=== PATIENT | male | born 1975 | race Caucasian/White ===

== ENCOUNTER 2016-09-15 04:00 | Inpatient (IN) | payer OTHER ==
[~2016-09-15] VITALS: Ht 175.3 cm; Wt 80.7 kg
--- NOTE | 2016-09-15 04:21 | HP ---
Date/Time of Note Date/Time of Note DATE: 09/15/16 TIME: 04:16 Assessment/Plan VTE Prophylaxis VTE Prophylaxis Intervention: SCD's Assessment/Plan Assessment/Plan 40 yo male with a past medical history of ETOH abuse, cirrhosis, vitiligo, s/p TIPS procedure, who presents with acute loss of consciousness. 1. Syncope - vasovagal vs cardiogenic - will admit the patient to telemetry, obtain 2D-ECHO, carotid duplex, fall risk precautions, neurovascular checks, TSH /Mag level 2. ETOH abuse - patient counseled on cessation - social work consult, banana bag , librium, GI c/s, ativan prn 3. Liver Cirrhosis s/p TIPS - hepatically adjust medications 4. Pancytopenia - 2/2 #2 - monitor acute changes 5. Vitiligo - monitor 6. GI ppx - protonix 7. DVT ppx - scds 8. Hypomagnesemia - replete answered all of his questions. as per clinical course this history and physical took greater then 45 minutes to complete HPI/ROS Admit Date/Time Admit Date/Time 09/15/2016, 4:50 am Hx of Present Illness 40 yo male with a past medical history of ETOH abuse, cirrhosis, vitiligo, s/p TIPS procedure, who presents with acute loss of consciousness. He states that he was drinking last night, passed out and hit his face. He does not recollect what had happened. He was brought in via ambulance to [facility]. Patient states that he had nausea and vomiting x 5 episodes NBNB. Otherwise denies chest pain, shortness of breath, headaches, urinary/bowel irregularities. He does complain of dizziness and weakness. Similar presentation before. He was transferred here to [facility] for insurance purposes. Ct facial: normal CT of the face, no fracture, no hematoma, globes intact. Mild mucoperiosteal thickening maxillary sinuses. CT neck: Mild degenerative changes, without acute fracture Ct brain without contrast: No evidence of acute intracranial pathology. The brain in normal appearance. Labs: WBC 2.5, H/H: 8.3/25.7, Plts: 95, MCV 78.6, K+ 3.3, gluc 118, Mag 1.3, Alb 2.9, Tbili 1.8, Alt 34, AST: 89, Alkphos 175, Amylase 148, Lactic Acid 3.0, Lipase 40, Ethanol 366 ROS 14 point review of systems completed, please refer to HPI for any positive findings PMH/Family/Social Past Medical History ETOh abuse, liver cirrhosis, vitiligo Past Surgical History s/p TIPS procedure, right lung resection with decortication Family History Significant Family History: no pertinent family hx, heart disease (none), cancer (none) Social History Alcohol Use: heavy (4 beers a day) Smoking Status: Never smoker Drug Use: none Exam/Review of Systems Exam Exam Gen Yara: NAD, AAOx4 HEENT: NC/AT, PERRLA, EOMI, no pharyngeal erythema, no tonsillar exudates, no lymphadenopathy, no JVD, no carotid bruits, right periorbital swelling noted, nares with dried blood NECK: supple, no thyromegaly THORAX: symmetrical, no obvious deformities CV: S1S2, tachycardiac, no M/G/R Lungs: CTAB no W/C/R/R Abd: soft, NT/ND, +BS, no rebound, no guarding, neg HSM EXT: no edema, no ecchymosis, no clubbing, FROM Neuro: CN II-XII grossly intact, no focal deficits Psych: good mentation, alert and oriented, good mood and affect Skin: C/D/I LUIS CARTER MD Sep 15, 2016 04:21
[2016-09-15] MEDS ORDERED: ONDANSETRON 4 MG INJ IV PRN (04:30)
[2016-09-15] MEDS ORDERED: NITROGLYCERIN (SL) 0.4 MG TAB SL PRN (04:30)
[2016-09-15] MEDS ORDERED: DOCUSATE SODIUM 100 MG CAP PO PRN (04:30)
[2016-09-15] MEDS ORDERED: NACL 0.9% 3 ML SYG IV SCH (04:30)
--- NOTE | 2016-09-15 04:31 | ERA ---
ER Documentation Chief Complaint Date/Time DATE: 09/15/16 TIME: 04:30 Chief Complaint HPI 40-year-old male who has alcohol withdrawal who is capitated here transferred from [facility]. Patient will be admitted to the hospitalist. ROS All systems reviewed and are negative except as per history of present illness. Allergies Allergies: Coded Allergies: No Known Allergy (Unverified , 07/20/16) PMhx/Soc History of Surgery: No Anesthesia Reaction: No Hx Neurological Disorder: No Hx Respiratory Disorders: No Hx Cardiac Disorders: No Hx Psychiatric Problems: No Hx Miscellaneous Medical Probl: Yes (ESOPHAGEAL VARICES) Hx Alcohol Use: Yes Hx Substance Use: No Hx Tobacco Use: No Physical Exam Physical Exam Const: [] Head: Atraumatic Eyes: Normal Conjunctiva ENT: Normal External Ears, Nose and Mouth. Neck: Full range of motion..~ No meningismus. Resp: Clear to auscultation bilaterally Cardio: Regular rate and rhythm, no murmurs Abd: Soft, non tender, non distended. Normal bowel sounds Skin: No petechiae or rashes Back: No midline or flank tenderness Ext: No cyanosis, or edema Neur: Awake and alert Psych: Normal Mood and Affect Results 24 hrs Current Medications Medications (Trade) Dose Ordered Sig/Debora Route PRN Reason Start Time Stop Time Status Last Admin Dose Admin Sodium Chloride (NS) 1,000 ml @ 50 mls/hr Q20H IV 09/15/16 04:12 IV Flush (NS 3 ml) 3 ml PER PROTOCOL IV 09/15/16 04:30 Lorazepam (Ativan) 0.5 mg Q6H PRN IV ANXIETY 09/15/16 04:30 Ondansetron HCl (Zofran Inj) 4 mg Q6H PRN IV NAUSEA AND/OR VOMITING 09/15/16 04:30 Nitroglycerin (Nitroglycerin (Sl Tab) 0.4 Mg) 1 tab Q5M PRN SL CHEST PAIN 09/15/16 04:30 Ibuprofen (Motrin) 600 mg Q6H PRN PO PAIN LEVEL 1-3 OR FEVER 09/15/16 04:30 Morphine Sulfate (morphine) 2 mg Q4H PRN IV PAIN LEVEL 7-10 09/15/16 04:30 Docusate Sodium 100 mg 100 mg Q12H PRN PO CONSTIPATION 1/11/17 04:30 Multivitamins/ Thiamine HCl/ Folic Acid/Sodium Chloride (Mvi-12 Adult/ Vitamin B1/Folic Acid/NS) 1,011.2 ml @ 125 mls/ hr DAILY@09 IVPB 09/15/16 09:00 Procedures/MDM Medical decision-makin gentleman acute alcohol withdrawal syndrome. Patient comes through the ER secondary to capitated insurance. Patient will be admitted to telemetry to the hospitalist. Hospitalist is aware. Departure Diagnosis: Primary Impression: Alcohol withdrawal Qualified Code: F10.230 - Alcohol withdrawal, uncomplicated Condition: Stable CONCEPCION KIMBLE Sep 15, 2016 04:31
[2016-09-15] MEDS: LORAZEPAM 2 MG INJ IV PRN ×2 (04:41→10:34)
[2016-09-15] MEDS: SOD CHLORIDE 0.9% 1,000 ML IV SCH ×2 (04:41→17:10)
[2016-09-15] MEDS: morphine 2 MG INJ IV PRN (04:42)
[2016-09-15] MEDS ORDERED: MAGNESIUM SULFATE 4 GM/100 ML 100 ML IVPB ONE (05:00)
[2016-09-15 05:03] LABS: CHOL/HDL RATIO 3.2 RATIO; MAGNESIUM 1.2 mg/dl (1.7-2.5)
[2016-09-15 05:15] LABS: TROPONIN-I 0.013 ng/ml (0.00-0.12)
[2016-09-15 05:35] LABS: THYROID STIMULATING HORMONE 2.37 MIU/L (0.465-4.680)
[2016-09-15] MEDS: MULTIVITAMINS 10 ML, THIAMINE 100 MG, FOLIC ACID 1 MG in SOD CHLORIDE 0.9% 1,000 ML IVPB SCH (08:12)
--- NOTE | 2016-09-15 09:02 | RADRPT ---
PROCEDURE: US Carotids. CLINICAL INDICATION: bruit , syncope. TECHNIQUE: Multiple sonographic of the carotid bifurcation region and vertebral arteries were obta ined utilizing summers scale, duplex and color-flow imaging. The images were reviewed on a PACS worksta tion. COMPARISON: No prior studies are available for comparison. FINDINGS: Evaluation of the right carotid bifurcation region reveals no significant calcific atherosclerotic d isease. Evaluation of the left carotid bifurcation region reveals no significant calcific atherosclerotic di sease. There is antegrade flow within the vertebral arteries bilaterally. RIGHT CAROTID MEASUREMENTS: Common Carotid Ejjhxg459.7 (cm/sec) Internal Carotid Artery - lgfkilxv521.8 (cm/sec) Internal Carotid Artery - qep472.6 (cm/sec) Internal Carotid Artery - zzyrhp89.5 (cm/sec) Internal Carotid/Common Carotid1.06 LEFT CAROTID MEASUREMENTS: Common Carotid Jithep351.8 (cm/sec) Internal Carotid Artery - xrrfpvcu38.8 (cm/sec) Internal Carotid Artery - mid64.9 (cm/sec) Internal Carotid Artery - icxpyh08.1 (cm/sec) Internal Carotid/Common Carotid0.75 RPTAT: AA IMPRESSION: No evidence for hemodynamically significant stenosis in the bilateral internal carotid arteries - va lidated velocity measurements with angiographic measurements, velocity criteria are extrapolated fro m diameter data as defined by the Society of Radiologists in Ultrasound Consensus Conference Radiolo gy 2003; 229;340-346. This study does indirectly reference the measurement of the distal ICA diamet er as the denominator for stenosis measurement. Normal antegrade flow in the vertebral arteries bilaterally. .Maurice Orr MD, MD Date Time Electronically viewed and signed by .Maurice Orr MD, MD on 09/15/2016 09:02 .S/
[2016-09-15 11:07] VITALS: TEMP 98.7
[2016-09-15 11:22] LABS: CK-MB 2.07 ng/ml (0.0-2.4)
[2016-09-15 11:24] LABS: TROPONIN-I 0.014 ng/ml (0.00-0.12)
[2016-09-15 12:27] VITALS: Ht 175.3 cm; Wt 80.7 kg
[2016-09-15] MEDS: IBUPROFEN 600 MG TAB PO PRN (13:09)
[2016-09-15 15:24] LABS: ALBUMIN 2.8 g/dl (3.3-4.9)
[2016-09-15 15:25] LABS: POTASSIUM 3.8 mmol/L (3.5-5.1)
[2016-09-15 15:27] LABS: BILIRUBIN,INDIRECT 1.3 mg/dl (0-1.1); BILIRUBIN,TOTAL 1.3 mg/dl (0.2-1.3); CREATININE 0.52 mg/dl (0.61-1.24)
[2016-09-15 15:28] LABS: ALBUMIN/GLOBULIN RATIO 0.75; CALCIUM 8.1 mg/dl (8.4-10.2); TOTAL PROTEIN 6.5 g/dl (6.1-8.1)
--- NOTE | 2016-09-15 15:28 | CONS ---
Date/Time of Note Date/Time of Note DATE: 09/15/16 TIME: 15:24 Assessment/Plan Assessment/Plan Additional Assessment/Plan Hematemesis * PPI therapy and Carafate * Monitor H&H every 6hr, transfuse 2 units for hemoglobin less than 7.5 Esophageal varices History of TIPS procedure * Patient was transferred to [facility] [place] on [place]/15/2016 for Balloon-occluded retrograde transvenous obliteration (BRTO) EtOH abuse * Encourage accident Further recommendations pending clinical course Consultation Date/Type/Reason Admit Date/Time 09/15/2016, 4:50 am Type of Consultation: Gastroenterology Reason for Consultation History of esophageal varices, reports of hematemesis Hx of Present Illness 40-year-old male presented to ED with reports of nausea at least one episode of hematemesis, alcohol intoxication, and syncopal episode. Patient was previously evaluated at [facility] and transferred to [facility] for further evaluation. Patient patient has PMH of TIPS procedure and variceal bleeding. Patient was transferred from [facility] to [facility] on 08/15/16 for Balloon-occluded retrograde transvenous obliteration (BRTO) due to complications from TIPS. Patient unable to provide information about procedure (namely timing and plan for follow-up). Patient denies abdominal pain, diarrhea, shortness of breath, chest pain, dizziness, and headache. Presently repeat EGD not recommended unless overt bleeding is noted or precipitous drop in hemoglobin. Patient has few therapeutic options from repeat EGD. We will continue to monitor hemoglobin, and transfuse as necessary. 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 intact Results Results 24 hrs Laboratory Tests Test 09/15/16 04:35 09/15/16 10:13 09/15/16 10:43 Cholesterol Level 148 Cholesterol/HDL Ratio 3.2 Creatine Kinase 565 H 560 H Creatine Kinase Index 0.4 0.4 Creatinine Kinase MB (Mass) 2.00 2.07 HDL Cholesterol 45 LDL Cholesterol, Calculated 81 Magnesium Level 1.2 L 1.9 Thyroid Stimulating Hormone (TSH) 2.370 Triglycerides Level 112 Troponin I 0.013 0.014 Medications Medications Current Medications Sodium Chloride (NS) 1,000 ml @ 50 mls/hr Q20H IV Last administered on 04:41; Admin Dose 50 MLS/HR; Start 09/15/16 at 04:12 Lorazepam (Ativan) 0.5 mg Q6H PRN IV ANXIETY Last administered on 09/15/16 10: 34; Admin Dose 0.5 MG; Start 09/15/16 at 04:30 Ondansetron HCl (Zofran Inj) 4 mg Q6H PRN IV NAUSEA AND/OR VOMITING Last administered on 09/15/16 04:41; Admin Dose 4 MG; Start 09/15/16 at 04:30 Nitroglycerin (Nitroglycerin (Sl Tab) 0.4 Mg) 1 tab Q5M PRN SL CHEST PAIN; Start 09/15/16 at 04:30 Ibuprofen (Motrin) 600 mg Q6H PRN PO PAIN LEVEL 1-3 OR FEVER Last administered on 09/15/16 13:09; Admin Dose 600 MG; Start 09/15/16 at 04:30 Morphine Sulfate (morphine) 2 mg Q4H PRN IV PAIN LEVEL 7-10 Last administered on 09/15/16 04:42; Admin Dose 2 MG; Start 09/15/16 at 04:30 Docusate Sodium 100 mg 100 mg Q12H PRN PO CONSTIPATION; Start 09/15/16 at 04:30 Multivitamins/ Thiamine HCl/ Folic Acid/Sodium Chloride (Mvi-12 Adult/ Vitamin B1/Folic Acid/NS) 1,011.2 ml @ 125 mls/ hr DAILY@09 IVPB Last administered on 09/15/16 08:12; Admin Dose 125 MLS/HR; Start 09/15/16 at 09:00 Pantoprazole (Protonix Iv) 40 mg BID@06,18 IV ; Start 09/15/16 at 18:00 VAZQUEZ CASTANEDA MD Sep 15, 2016 15:28
[2016-09-15 15:40] LABS: HEMATOCRIT 21.3 % (42.0-52.0); HEMOGLOBIN 7.2 g/dl (14.0-18.0); MEAN CORPUSCULAR HEMOGLOBIN 26.1 pg (29.0-33.0); MEAN CORPUSCULAR HGB CONC 33.6 g/dl (32.0-37.0); MEAN CORPUSCULAR VOLUME 77.7 fl (82.0-101.0); PLATELET COUNT 61 10^3/UL (140-440); RED BLOOD COUNT 2.75 10^6/ul (4.70-6.10); RED CELL DISTRIBUTION WIDTH 17.3 % (11.5-14.5); UNCORRECTED WBC 1.7 10^3/ul (4.8-10.8)
[2016-09-15 15:46] LABS: CONDITION 1; LH ANALYZER COMMENTS 1; MEAN PLATELET VOLUME 8.5 fl (7.4-10.4)
--- NOTE | 2016-09-15 15:55 | RADRPT ---
Echocardiogram Report Patient Name: LYNDA TENORIO Gender: Male Date: 1975 Study Date: 15-Sep-2016 Room Attendant: Casper Nesbitt RDCS Location: Ref. Physician: LUIS CARTER Quality: Good Procedures: Transthoracic echocardiogram with complete 2D, M-Mode, and doppler examination. Indications: Syncope. 2D/M Mode Doppler Measurement Value Normal Ranges Measurement Value Normal Ranges LVIDd 2D 5.1 3.5 - 5.6 cm AV Peak Russ 2.0 m/sec LVIDs 2D 2.8 2.1 - 4.1 cm AV Peak PG 16.2 mmHg LVPWd 2D 1.1 0.6 - 1.1 cm LVOT Peak Russ 1.3 m/sec IVSd 2D 1.0 0.6 - 1.1 cm LVOT Peak PG 6.9 mmHg AoR Diam 2D 2.6 2.0 - 3.7 cm MV E Peak Russ 1.3 m/sec EDV 2D 122.3 cm3 MV A Peak Russ 1.7 m/sec ESV 2D 21.1 cm3 MV E/A 0.8 LA Dimen 2D 4.2 2.3 - 4.0 cm MV Decel Time 101 msec IVC Diam 1.8 1.2 - 2.0 MV Decel Moca 13 MV E/A 0.8 TR Peak Russ 2.4 m/sec TR Peak PG 23.7 mmHg RVSP 32.0 mmHg Findings Left Ventricle: Normal left ventricular systolic function. Normal left ventricular cavity size. Normal left ventricular wall thickness. Ejection fraction is visually estimated at 6065 %. Tissue Doppler/Mitral Doppler indices are consistent with impaired relaxation (Stage I diastolic dysfunction). Right Ventricle: Normal right ventricular size. Normal right ventricular systolic function. Left Atrium: There is mild enlargement of left atrium. Right Atrium: The right atrium is normal in size. Mitral Valve: Mitral valve leaflets appear mildly thickened. Mild mitral valve regurgitation. Aortic Valve: Normal appearance of the aortic valve. No significant aortic stenosis or insufficiency. Tricuspid Valve: Estimated peak PA systolic pressure 32 mmHg. There is mild tricuspid regurgitation. Pericardium: Normal pericardium with no significant pericardial effusion. Aorta: Normal aortic root. IVC: Normal size and no respiratory collapse consistent with elevated right atrial pressure. Conclusions 1.Normal left ventricular systolic function. Normal left ventricular cavity size. Normal left ventricular wall thickness. Ejection fraction is visually estimated at 60-65 %. Tissue Doppler/Mitral Doppler indices are consistent with impaired relaxation (Stage I diastolic dysfunction). There is mild enlargement of left atrium. 2.Mild mitral valve regurgitation. 3.Estimated peak PA systolic pressure 32 mmHg. 4.There is mild tricuspid regurgitation. Electronically Signed By: Ihsan Estrella 15-Sep-2016 15:55:25 -0800 Patient Name: LYNDA TENORIO Study Date: 15-Sep-[id number]
[2016-09-15 17:32] LABS: EOSINOPHILS # 0.1 10^3/ul (0.0-0.5); MONOCYTE # 0.1 10^3/ul (0.3-0.9); NEUTROPHIL # 0.5 10^3/ul (1.6-7.5)
[2016-09-15 17:35] LABS: ANISOCYTOSIS 1+; HYPOCHROMASIA OCCASIONAL; MICROCYTOSIS 1+; PLATELET ESTIMATE PLT APPEAR DECREASED
[2016-09-15] MEDS: PANTOPRAZOLE 40 MG INJ IV SCH (18:02)
[2016-09-15] MEDS ORDERED: PHYTONADIONE 10 MG in DEXTROSE 5% 50 ML IVPB ONE (19:00)
[2016-09-15 20:33] VITALS: BP 116/57; RESP 19
[2016-09-15] MEDS ORDERED: ACETAMINOPHEN 325 MG TAB PO PRN (23:00)
[2016-09-16] MEDS: SOD CHLORIDE 0.9% 1,000 ML IV SCH ×2 (00:12→20:12)
[2016-09-16] MEDS: PANTOPRAZOLE 40 MG INJ IV SCH ×2 (06:16→17:35)
[2016-09-16 08:16] VITALS: BP 120/64; RESP 19
[2016-09-16] MEDS: MULTIVITAMINS 10 ML, THIAMINE 100 MG, FOLIC ACID 1 MG in SOD CHLORIDE 0.9% 1,000 ML IVPB SCH (09:00)
[2016-09-16 10:17] LABS: HEMATOCRIT 25.8 % (42.0-52.0); HEMOGLOBIN 8.5 g/dl (14.0-18.0); MEAN CORPUSCULAR HEMOGLOBIN 26.5 pg (29.0-33.0); MEAN CORPUSCULAR VOLUME 80.3 fl (82.0-101.0); PLATELET COUNT 41 10^3/UL (140-440); RED BLOOD COUNT 3.22 10^6/ul (4.70-6.10); RED CELL DISTRIBUTION WIDTH 17.3 % (11.5-14.5); UNCORRECTED WBC 1.9 10^3/ul (4.8-10.8); WHITE BLOOD COUNT 1.9 10^3/ul (4.8-10.8)
[2016-09-16 10:18] LABS: CONDITION 1; LH ANALYZER COMMENTS 1; MEAN PLATELET VOLUME 7.8 fl (7.4-10.4)
[2016-09-16 10:27] LABS: INR 1.64; PROTIME 19.5 Sec (12.2-14.2); PT RATIO 1.5
[2016-09-16 10:28] LABS: PARTIAL THROMBOPLASTIN TIME 36.7 Sec (25.0-35.0)
[2016-09-16 10:33] LABS: POTASSIUM 3.7 mmol/L (3.5-5.1)
[2016-09-16 10:50] LABS: CREATININE 0.58 mg/dl (0.61-1.24)
[2016-09-16 11:21] LABS: ANISOCYTOSIS 1+; EOSINOPHILS # 0.1 10^3/ul (0.0-0.5); HYPOCHROMASIA 1+; LYMPHOCYTES # 0.3 10^3/ul (0.8-2.9); MICROCYTOSIS 1+; MONOCYTE # 0.2 10^3/ul (0.3-0.9); NEUTROPHIL # 1.3 10^3/ul (1.6-7.5)
[2016-09-16 11:22] LABS: PLATELET ESTIMATE PLT APPEAR DECREASED
[2016-09-16] MEDS ORDERED: LORAZEPAM 2 MG INJ IV PRN (12:30)
[2016-09-16 12:34] LABS: IRON 99 ug/dl (35-150)
[2016-09-16 12:43] LABS: TOTAL IRON BINDING CAPACITY 373 ug/dl (241-421)
--- NOTE | 2016-09-16 13:44 | RADRPT ---
PROCEDURE: Chest Radiograph. CLINICAL INDICATION: Fever. TECHNIQUE: Single frontal chest radiograph. COMPARISON: None available FINDINGS: The heart is magnified. There is elevation of the right hemidiaphragm.. Patchy increased density i n the right lung base may represent atelectasis or developing infiltrate. The left lung is grossly clear . No pleural effusion is identified. The bones are intact. IMPRESSION: 1. Linear opacities in the right lung base likely representing atelectasis, though developing infil trate could have this appearance. 2. Mild elevation of the right hemidiaphragm. RPTAT: KK .Riky Dodd MD, MD Date Time Electronically viewed and signed by .Riky Dodd MD, on 09/16/2016 13:44 .B/
--- NOTE | 2016-09-16 14:11 | PN ---
DATE: 09/16/2016 SUBJECTIVE: No acute events overnight. The patient presently speaking with manager social. The pat ient received 2 units of PRBC yesterday, also 1 unit FFP and 1 unit of platelet transfusion. OBJECTIVE: VITAL SIGNS: Show T-max of 100.9, pulse of 106 to 124, respirations 19, blood pressure 120/64, satu rating at 99% on room air. GENERAL: The patient is lying in bed, answering questions appropriately. No acute distress. HEENT: Pupils equal, round, react to light. Extraocular muscles intact. NECK: Supple. No thyromegaly. LUNGS: Clear to auscultation bilaterally. CARDIOVASCULAR: S1, S2 heard. No rubs or gallops. ABDOMEN: Soft, nontender, nondistended. Normal bowel sounds. No rebound or guarding. MUSCULOSKELETAL: No lower extremity edema bilaterally. NEUROLOGIC: No focal deficits. LABORATORY DATA: WBC 1.9, hemoglobin 8.5, hematocrit 25.8, platelets of 21. We did a CBC. BMP is normal. Blood alcohol level is elevated at 67. INR today is 1.6. Carotid Dopplers showed no evide nce for any hemodynamically significant stenosis on the bilateral internal carotid arteries and norm al anterograde flow in the vertebral arteries bilaterally. The patient had an echocardiogram that s howed normal left ventricular systolic function, ejection fraction 60% to 65%. There was some stage I diastolic dysfunction, however, there is mild enlargement of left atrium, mild tricuspid regurgit ation. ASSESSMENT AND PLAN: This is a 40-year-old male with history of alcohol abuse, cirrhosis, vitiligo status post TIPS procedure, who presents with syncopal event. 1. Syncope. Again, head CT showed no evidence of any acute intracranial pathology, could be vasova gal versus cardiogenic. Again, continue to monitor the patient for now. Could also be secondary to his alcohol intoxication. Monitor labs very carefully. 2. Alcohol abuse. Continue banana bag, Librium, Ativan. Social work consult recs. 3. Fevers, unclear source. The patient also signs of sepsis. Given his tachycardia and fevers, wi ll check a UA and urine culture, blood culture x1 set, a chest x-ray as well. 4. Leukopenia, unclear source. Continue to monitor for now. 5. Anemia. Again, follow up occult test, GI recommendations. Unclear source of patient's anemia. He did get PRBC transfusion yesterday. 6. History of cirrhosis. The patient has history of TIPS procedure. Continue to monitor for now. Follow GI recommendations. The patient also has history of esophageal varices. Continue Protonix and Carafate. 7. Thrombocytopenia. Again, unclear source. Could be secondary to the patient's end-stage liver d isease and cirrhosis. Again, status post platelet transfusion. Continue to monitor for now. I wou ld like to get platelets above 50. 8. Gastrointestinal prophylaxis, PPI. 9. Deep venous thrombosis prophylaxis, sequential compression devices. Dictated By: PAYAM PALACIO/MARSHALL Conf#: [id number] DID#: [id number]
[2016-09-16] MEDS: SUCRALFATE 1 GM TAB PO SCH ×3 (14:19→20:54)
--- NOTE | 2016-09-16 15:45 | CONS ---
Date/Time of Note Date/Time of Note DATE: 09/16/16 TIME: 15:44 Assessment/Plan Assessment/Plan Additional Assessment/Plan Hematemesis * PPI therapy and Carafate * Monitor H&H every 6hr, transfuse 2 units for hemoglobin less than 7.5 Esophageal varices History of TIPS procedure * Patient was transferred to [facility] [place]2016 for Balloon-occluded retrograde transvenous obliteration (BRTO). Pt underwent TIPS 07/27/16 EtOH abuse * Encourage abstinence Further recommendations pending clinical course Patient seen in collaboration with Dr. Dumont Consultation Date/Type/Reason Admit Date/Time Sep 15, 2016 at 04:28 Initial Consult Date Type of Consultation: Gastroenterology 24 HR Interval Summary Free Text/Dictation Hemoglobin stable status post 2 units PRBC Patient also status post 1 unit FFP and 1 unit platelets Tolerating diet Exam/Review of Systems Vital Signs Vitals Vital Signs Date Time Temp Pulse Resp B/P Pulse Ox O2 Delivery O2 Flow Rate FiO2 09/16/16 08:16 98.0 106 19 120/64 99 09/15/16 11:07 Room Air Intake and Output 09/15/16 09/15/16 09/16/16 15:00 23:00 07:00 Intake Total 1911 ml 1235 ml Output Total 1810 ml 1000 ml Balance -1810 ml 911 ml 1235 ml Exam Constitutional: alert, oriented, well developed Head: normocephalic Eyes: EOMI Respiratory: normal air movement Gastrointestinal: hepatomegaly, non-tender, soft 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 II-XII intact Results Result Diagram: 09/16/16 1000 09/16/16 1000 Results 24 hrs Laboratory Tests Test 09/16/16 10:00 Activated Partial Thromboplast Time 36.7 H Anion Gap 14 Anisocytosis 1+ Band Neutrophils % 4.0 Basophils # 0.0 Basophils % 1.0 Blood Morphology Comment Blood Urea Nitrogen 7 Calcium Level 9.0 Carbon Dioxide Level 24 Chloride Level 107 Creatinine 0.58 L Differential Comment MANUAL DIFF Eosinophils # 0.1 Eosinophils % 4.0 Glucose Level 82 Hematocrit 25.8 #L Hemoglobin 8.5 L Hypochromasia 1+ INR International Normalized Ratio 1.64 Iron Level 99 Lymphocytes # 0.3 L Lymphocytes % 17.0 Mean Corpuscular Hemoglobin 26.5 L Mean Corpuscular Hemoglobin Concent 33.0 Mean Corpuscular Volume 80.3 L Mean Platelet Volume 7.8 Microcytosis 1+ Monocytes # 0.2 L Monocytes % 8.0 Neutrophils # 1.3 L Neutrophils % 66.0 Percent Iron Saturation 27 Platelet Count 41 #L Platelet Estimate PLT APPEAR DECREASED Potassium Level 3.7 Prothrombin Time 19.5 H Prothrombin Time Ratio 1.5 Red Blood Count 3.22 L Red Cell Distribution Width 17.3 H Sodium Level 141 Total Iron Binding Capacity 373 White Blood Count 1.9 L Medications Medications Current Medications Sodium Chloride (NS) 1,000 ml @ 50 mls/hr Q20H IV Last administered on 17:10; Admin Dose 50 MLS/HR; Start 09/15/16 at 04:12 Ondansetron HCl (Zofran Inj) 4 mg Q6H PRN IV NAUSEA AND/OR VOMITING Last administered on 09/15/16 04:41; Admin Dose 4 MG; Start 09/15/16 at 04:30 Nitroglycerin (Nitroglycerin (Sl Tab) 0.4 Mg) 1 tab Q5M PRN SL CHEST PAIN; Start 09/15/16 at 04:30 Ibuprofen (Motrin) 600 mg Q6H PRN PO PAIN LEVEL 1-3 OR FEVER Last administered on 09/15/16 13:09; Admin Dose 600 MG; Start 09/15/16 at 04:30 Morphine Sulfate (morphine) 2 mg Q4H PRN IV PAIN LEVEL 7-10 Last administered on 09/15/16 04:42; Admin Dose 2 MG; Start 09/15/16 at 04:30 Docusate Sodium 100 mg 100 mg Q12H PRN PO CONSTIPATION; Start 09/15/16 at 04:30 Multivitamins/ Thiamine HCl/ Folic Acid/Sodium Chloride (Mvi-12 Adult/ Vitamin B1/Folic Acid/NS) 1,011.2 ml @ 125 mls/ hr DAILY@09 IVPB Last administered on 09/15/16 08:12; Admin Dose 125 MLS/HR; Start 09/15/16 at 09:00 Pantoprazole (Protonix Iv) 40 mg BID@06,18 IV Last administered on 09/16/16 06 :16; Admin Dose 40 MG; Start 09/15/16 at 18:00 Acetaminophen (Tylenol Tab) 325 mg Q6H PRN PO PAIN AND OR ELEVATED TEMP Last administered on 09/15/16 22:59; Admin Dose 325 MG; Start 09/15/16 at 23:00 Lorazepam (Ativan) 1 mg Q1H PRN IV CONTROL WITHDRAWAL SYMPTOMS; Start 09/16/16 at 12:30 Sucralfate (Carafate) 1 gm QID PO Last administered on 09/16/16 14:19; Admin Dose 1 GM; Start 09/16/16 at 13:00 CAROLYN BEAUCHAMP Sep 16, 2016 15:45
[2016-09-16 16:56] LABS: ADD UMIC NO; URINE BILIRUBIN (Dip) NEGATIVE (NEGATIVE); URINE BLOOD (Dip) NEGATIVE (NEGATIVE); URINE COLOR LT. YELLOW (YELLOW); URINE GLUCOSE (Dip) NEGATIVE (NEGATIVE); URINE KETONES (Dip) NEGATIVE (NEGATIVE); URINE LEUKOCYTE ESTERASE (Dip) NEGATIVE (NEGATIVE); URINE NITRITE (Dip) NEGATIVE (NEGATIVE); URINE TOTAL PROTEIN (Dip) NEGATIVE (NEGATIVE); URINE UROBILINOGEN (Dip) 1.0 E.U./dL (0.1-1.0)
[2016-09-16 19:35] VITALS: BP 121/69; RESP 19
[2016-09-17] MEDS: SOD CHLORIDE 0.9% 1,000 ML IV SCH (04:27)
[2016-09-17] MEDS: PANTOPRAZOLE 40 MG INJ IV SCH (06:08)
[2016-09-17] MEDS: IBUPROFEN 600 MG TAB PO PRN (06:13)
[2016-09-17 06:34] LABS: POTASSIUM 3.4 mmol/L (3.5-5.1)
[2016-09-17 06:36] LABS: CREATININE 0.6 mg/dl (0.61-1.24)
[2016-09-17 06:49] LABS: HEMATOCRIT 24.7 % (42.0-52.0); HEMOGLOBIN 8.4 g/dl (14.0-18.0); MEAN CORPUSCULAR HGB CONC 34.1 g/dl (32.0-37.0); MEAN CORPUSCULAR VOLUME 79.3 fl (82.0-101.0); MEAN PLATELET VOLUME 8.6 fl (7.4-10.4); PLATELET COUNT 43 10^3/UL (140-440); RED BLOOD COUNT 3.12 10^6/ul (4.70-6.10); RED CELL DISTRIBUTION WIDTH 16.8 % (11.5-14.5); UNCORRECTED WBC 0.7 10^3/ul (4.8-10.8); WHITE BLOOD COUNT 0.7 10^3/ul (4.8-10.8)
[2016-09-17 07:10] LABS: MAGNESIUM 1.2 mg/dl (1.7-2.5); PHOSPHORUS 4.1 mg/dl (2.5-4.9)
[2016-09-17 07:22] LABS: CONDITION 1; LH ANALYZER COMMENTS 1; SUSPECT 1
[2016-09-17 08:12] VITALS: BP 121/59; RESP 18
[2016-09-17] MEDS: SUCRALFATE 1 GM TAB PO SCH ×4 (09:14→21:56)
[2016-09-17] MEDS: MULTIVITAMINS 10 ML, THIAMINE 100 MG, FOLIC ACID 1 MG in SOD CHLORIDE 0.9% 1,000 ML IVPB SCH (09:15)
[2016-09-17 11:34] LABS: ANISOCYTOSIS 1+; LYMPHOCYTES # 0.5 10^3/ul (0.8-2.9); NEUTROPHIL # 0.1 10^3/ul (1.6-7.5)
[2016-09-17 11:35] LABS: HYPOCHROMASIA 1+; MICROCYTOSIS 1+
[2016-09-17 11:55] LABS: INR 1.48; PT RATIO 1.4
[2016-09-17 11:56] LABS: PARTIAL THROMBOPLASTIN TIME 37.8 Sec (25.0-35.0)
--- NOTE | 2016-09-17 16:56 | EN ---
Date/Time of Note Date/Time of Note DATE: 09/17/16 TIME: 16:54 Event Note Medicine Medicine Event Note Discussed with patient's brother Patient had recent TIPS procedure at [facility] under Dr. Garcia He is scheduled for follow-up with Dr. Garcia at [facility] this week. According to family patient had stopped drinking until recently. Patient normally lives with his family. LARISA COHEN MD, [facility] Sep 17, 2016 16:56
--- NOTE | 2016-09-17 16:58 | PN ---
DATE: 09/17/2016 SUBJECTIVE: Patient Dickey remains ____. No new events. Awake, alert and comfortable. No respirat ory distress. No further epistaxis. No nausea, vomiting. No blood per rectum. PHYSICAL EXAMINATION: VITAL SIGNS: Temperature 98, pulse 97, blood pressure 121/59, O2 saturation 96% on room air. NECK: Supple. No JVD, no lymphadenopathy. CARDIAC: S1, S2. No added sounds or murmurs. CHEST: Diminished air entry bilaterally. ABDOMEN: Soft, nontender. No guarding or rebound. EXTREMITIES: No cyanosis, clubbing, edema. NEUROLOGIC: Grossly intact. No focal deficits. LABORATORY DATA: White count 0.7, hemoglobin 8.4, platelets of 43. BUN 6, creatinine 0.6. INR 1.4 8. IMPRESSION AND PLAN: A 40-year-old gentleman initially admitted intoxicated with a history of alcoh ol abuse and significant anemia, questionably secondary to epistaxis. Status post 2 units packed re d blood cells on the , and hemoglobin remains relatively stable. CBC does, however, demonstrate progressive pancytopenia of unclear etiology, possibly secondary to bone marrow suppression from hi s liver disease. The patient will require: 1. Hematology/oncology consult to rule out underlying malignancy, although I think this is less lik libby. 2. Continue with monitoring hemoglobin. 3. Correction of hypokalemia and hypomagnesemia. Dictated By: LARISA MURRELL/MARSHALL Conf#: [id number] DID#: [id number]
[2016-09-17] MEDS ORDERED: MAGNESIUM SULFATE 2 GM/50 ML 50 ML IVPB ONE (18:00)
[2016-09-17] MEDS: PANTOPRAZOLE IV 80 MG in SOD CHLORIDE 0.9% 100 ML IV SCH (18:00)
[2016-09-17] MEDS ORDERED: POTASSIUM CHLORIDE 250 ML IVPB ONE (18:00)
--- NOTE | 2016-09-17 18:29 | CONS ---
Date/Time of Note Date/Time of Note DATE: 09/17/16 TIME: 18:27 Assessment/Plan Assessment/Plan Additional Assessment/Plan Hematemesis * PPI therapy and Carafate * Monitor H&H every 6hr, transfuse 2 units for hemoglobin less than 7.5 Esophageal varices History of TIPS procedure * [place] [facility] [place] and had TIPS procedure 07/27 EtOH abuse * Encourage abstinence Further recommendations pending clinical course Patient seen in collaboration with Dr. Dumont Consultation Date/Type/Reason Admit Date/Time Sep 15, 2016 at 04:28 Type of Consultation: Gastroenterology 24 HR Interval Summary Free Text/Dictation Hemoglobin at 8.4 status post 2 units PRBC Ordered Doppler to assess flow of tips Start octreotide and Protonix drip Patient status post [place] [facility] [place] Garcia Exam/Review of Systems Vital Signs Vitals Vital Signs Date Time Temp Pulse Resp B/P Pulse Ox O2 Delivery O2 Flow Rate FiO2 09/17/16 08:12 98.6 97 18 121/59 98 09/15/16 11:07 Room Air Intake and Output 09/16/16 09/16/16 09/17/16 15:00 23:00 07:00 Intake Total 1700 ml 1375 ml Output Total 250 ml 650 ml Balance 1450 ml 725 ml Exam Constitutional: alert, oriented, well developed Head: normocephalic Eyes: EOMI Respiratory: normal air movement Gastrointestinal: hepatomegaly, non-tender, soft Neurological: JEWELRY BENCH MOLDER II-XII intact Results Result Diagram: 09/17/16 0455 09/17/16 0455 Results 24 hrs Laboratory Tests Test 09/17/16 04:55 Activated Partial Thromboplast Time 37.8 H Anion Gap 15 Anisocytosis 1+ Band Neutrophils % 1.0 Basophils # 0.0 Basophils % 4.0 H Blood Morphology Comment Blood Urea Nitrogen 6 L Calcium Level 9.0 Carbon Dioxide Level 23 Chloride Level 106 Creatinine 0.60 L Differential Comment MANUAL DIFF Eosinophils # 0.0 Eosinophils % 4.0 Glucose Level 73 Hematocrit 24.7 L Hemoglobin 8.4 L Hypochromasia 1+ INR International Normalized Ratio 1.48 Lymphocytes # 0.5 L Lymphocytes % 71.0 H Magnesium Level 1.2 L Mean Corpuscular Hemoglobin 27.0 L Mean Corpuscular Hemoglobin Concent 34.1 Mean Corpuscular Volume 79.3 L Mean Platelet Volume 8.6 Microcytosis 1+ Monocytes # 0.0 L Monocytes % 4.0 Neutrophils # 0.1 L Neutrophils % 16.0 L Phosphorus Level 4.1 Platelet Count 43 L Potassium Level 3.4 L Prothrombin Time 18.0 H Prothrombin Time Ratio 1.4 Red Blood Count 3.12 L Red Cell Distribution Width 16.8 H Sodium Level 141 White Blood Count 0.7 #L Medications Medications Current Medications Ondansetron HCl (Zofran Inj) 4 mg Q6H PRN IV NAUSEA AND/OR VOMITING Last administered on 09/15/16 04:41; Admin Dose 4 MG; Start 09/15/16 at 04:30 Nitroglycerin (Nitroglycerin (Sl Tab) 0.4 Mg) 1 tab Q5M PRN SL CHEST PAIN; Start 09/15/16 at 04:30 Ibuprofen (Motrin) 600 mg Q6H PRN PO PAIN LEVEL 1-3 OR FEVER Last administered on 09/17/16 06:13; Admin Dose 600 MG; Start 09/15/16 at 04:30 Morphine Sulfate (morphine) 2 mg Q4H PRN IV PAIN LEVEL 7-10 Last administered on 09/15/16 04:42; Admin Dose 2 MG; Start 09/15/16 at 04:30 Docusate Sodium (Colace) 100 mg Q12H PRN PO CONSTIPATION; Start 09/15/16 at 04: 30 Acetaminophen (Tylenol Tab) 325 mg Q6H PRN PO PAIN AND OR ELEVATED TEMP Last administered on 09/15/16 22:59; Admin Dose 325 MG; Start 09/15/16 at 23:00 Lorazepam (Ativan) 1 mg Q1H PRN IV CONTROL WITHDRAWAL SYMPTOMS Last administered on 09/16/16 20:54; Admin Dose 1 MG; Start 09/16/16 at 12:30 Sucralfate 1 gm 1 gm QID PO Last administered on 09/17/16 17:57; Admin Dose 1 GM; Start 09/16/16 at 13:00 Magnesium Sulfate 50 ml @ 25 mls/hr ONCE ONCE IVPB Last administered on 18:19; Admin Dose 25 MLS/HR; Start 09/17/16 at 18:00; Stop 09/17/16 at 19: 59 Potassium Chloride 250 ml @ 62.5 mls/hr ONCE ONCE IVPB Last administered on t 18:21; Admin Dose 62.5 MLS/HR; Start 09/17/16 at 18:00; Stop 09/17/16 at 21:59 Octreotide Acetate 500 mcg/ Sodium Chloride 50 ml @ 2.5 mls/hr Q20H IV ; Start 09/17/16 at 18:00 Pantoprazole/ Sodium Chloride (Protonix Iv/NS) 100 ml @ 10 mls/hr Q10H IV ; Start 09/17/16 at 18:00 CAROLYN BEAUCHAMP Sep 17, 2016 18:29
[2016-09-17 18:43] LABS: HEMATOCRIT 25.8 % (42.0-52.0); HEMOGLOBIN 8.6 g/dl (14.0-18.0)
[2016-09-17 20:00] VITALS: BP 123/71; RESP 20
[2016-09-17 20:11] VITALS: PULSE 106
[2016-09-17] MEDS: morphine 2 MG INJ IV PRN (21:32)
[2016-09-17] MEDS: OCTREOTIDE 500 MCG in SOD CHLORIDE 0.9% 49 ML IV SCH (21:44)
[2016-09-18] VITALS (12 sets, daily range): BP systolic 119–135; BP diastolic 58–80; PULSE 94–103; RESP 15–20
[2016-09-18] MEDS: ZOLPIDEM 5 MG TAB PO PRN ×2 (00:17→23:01)
[2016-09-18] MEDS: PANTOPRAZOLE IV 80 MG in SOD CHLORIDE 0.9% 100 ML IV SCH ×2 (04:00→05:19)
[2016-09-18 06:53] LABS: POTASSIUM 3.6 mmol/L (3.5-5.1)
[2016-09-18 06:55] LABS: CREATININE 0.63 mg/dl (0.61-1.24)
[2016-09-18 06:56] LABS: CALCIUM 8.5 mg/dl (8.4-10.2)
[2016-09-18 07:02] LABS: HEMATOCRIT 25.1 % (42.0-52.0); HEMOGLOBIN 8.4 g/dl (14.0-18.0); MEAN CORPUSCULAR HEMOGLOBIN 26.8 pg (29.0-33.0); MEAN CORPUSCULAR HGB CONC 33.6 g/dl (32.0-37.0); MEAN CORPUSCULAR VOLUME 79.6 fl (82.0-101.0); MEAN PLATELET VOLUME 9.4 fl (7.4-10.4); PLATELET COUNT 48 10^3/UL (140-440); RED BLOOD COUNT 3.16 10^6/ul (4.70-6.10); RED CELL DISTRIBUTION WIDTH 16.9 % (11.5-14.5)
[2016-09-18 07:35] LABS: CONDITION 1; LH ANALYZER COMMENTS 1
[2016-09-18 09:24] LABS: WHITE BLOOD COUNT 1.7 10^3/ul (4.8-10.8)
--- NOTE | 2016-09-18 09:38 | RADRPT ---
PROCEDURE: US Abdomen (liver). CLINICAL INDICATION: Right upper quadrant abdomen pain. Check patency of TIPS. TECHNIQUE: Multiple real-time longitudinal and transverse images of the liver were acquired utiliz ing a curved array transducer. Color Doppler and pulsed Doppler sonography of the TIPS was also perf ormed. Images were reviewed on a high-resolution PACS workstation. COMPARISON: None FINDINGS: The liver is normal in size and echogenicity. There is no focal hepatic lesion. The portal vein is patent with a peak systolic velocity of 74 cm/sec There is a TIPS which is widely patent. The peak systolic velocity in the shunt is 129 cm/sec. IMPRESSION: 1. Grossly normal liver with patent TIPS. RPTAT: QQ .Bill Shrestha MD, MD Date Time Electronically viewed and signed by .Bill Shrestha MD, on 09/18/2016 09:38 .R/
[2016-09-18] MEDS: SUCRALFATE 1 GM TAB PO SCH ×4 (10:37→20:09)
--- NOTE | 2016-09-18 10:37 | PN ---
Date/Time of Note Date/Time of Note DATE: 09/18/16 TIME: 10:34 Assessment/Plan VTE Prophylaxis VTE Prophylaxis Intervention: contraindicated (Due to cirrhosis self anticoagulated) Lines/Catheters [facility] Peripheral IV Urinary Cath still in place: No Assessment/Plan Problems: (1) Cirrhosis of liver Status: Chronic Comment: He is status post a TIPs procedure. This has helped him however he is continued to drink. He is at extreme risk for complications. Her past the point where we should expect alcohol withdrawal and as such we will maintain him. Please note that I expect that we can come off of the octreotide in the IV pantoprazole in the next 24 hours Qualifiers: Hepatic cirrhosis type: alcoholic cirrhosis Ascites presence: without ascites Qualified Code: K70.30 - Alcoholic cirrhosis of liver without ascites (2) Splenic pancytopenia syndrome Status: Chronic Comment: She continues with rather significant pancytopenia. Part of this is splenic the part of this is also direct alcohol toxicity on the bone marrow. We will continue to try and support him expectantly. (3) Alcoholism with alcohol dependence Status: Chronic Comment: He has been re-counseled again. At the time of discharge we will have to try and place him but this will be the usual alcohol addiction attempt at success Qualifiers: Substance use status: other alcohol-induced disorder Qualified Code: F10.288 - Alcohol dependence with other alcohol-induced disorder (4) S/P transjugular intrahepatic portosystemic shunt Onset Date: ~ 07/27/2016 Status: Chronic Comment: Noted Subjective 24 Hr Interval Summary Free Text/Dictation Patient awake and alert and talkative. Constitutional: no complaints (Denies fevers chills or sweats) Respiratory: no complaints Cardiovascular: no complaints Gastrointestinal: no complaints Genitourinary: no complaints Exam/Review of Systems Vital Signs Vitals Vital Signs Date Time Temp Pulse Resp B/P Pulse Ox O2 Delivery O2 Flow Rate FiO2 09/18/16 08:45 103 09/18/16 07:28 99.1 20 125/73 96 09/15/16 11:07 Room Air Intake and Output 09/17/16 09/17/16 09/18/16 15:00 23:00 07:00 Intake Total 1860 ml 400 ml Output Total 400 ml Balance 1860 ml 0 ml Exam Constitutional: alert, oriented Respiratory: clear to auscultation, normal air movement Cardiovascular: nl pulses, regular rate and rhythm Gastrointestinal: non-tender, soft, splenomegaly Skin: other (Vitiligo at the extremities) Results Result Diagram: 09/18/16 0530 09/18/16 0530 Results 24 hrs Laboratory Tests Test 09/17/16 18:03 09/17/16 18:57 09/18/16 05:30 Hematocrit 25.8 L 25.1 L Hemoglobin 8.6 L 8.4 L Lab Scanned Report REFERENCE LAB Anion Gap 17 H Blood Morphology Comment Blood Urea Nitrogen 5 L Calcium Level 8.5 Carbon Dioxide Level 23 Chloride Level 104 Creatinine 0.63 Glucose Level 79 Mean Corpuscular Hemoglobin 26.8 L Mean Corpuscular Hemoglobin Concent 33.6 Mean Corpuscular Volume 79.6 L Mean Platelet Volume 9.4 Platelet Count 48 L Potassium Level 3.6 Red Blood Count 3.16 L Red Cell Distribution Width 16.9 H Sodium Level 140 White Blood Count 1.0 #L Medications Medications Current Medications Ondansetron HCl (Zofran Inj) 4 mg Q6H PRN IV NAUSEA AND/OR VOMITING Last administered on 09/15/16 04:41; Admin Dose 4 MG; Start 09/15/16 at 04:30 Nitroglycerin (Nitroglycerin (Sl Tab) 0.4 Mg) 1 tab Q5M PRN SL CHEST PAIN; Start 09/15/16 at 04:30 Ibuprofen (Motrin) 600 mg Q6H PRN PO PAIN LEVEL 1-3 OR FEVER Last administered on 09/17/16 06:13; Admin Dose 600 MG; Start 09/15/16 at 04:30 Morphine Sulfate (morphine) 2 mg Q4H PRN IV PAIN LEVEL 7-10 Last administered on 09/17/16 21:32; Admin Dose 2 MG; Start 09/15/16 at 04:30 Docusate Sodium (Colace) 100 mg Q12H PRN PO CONSTIPATION; Start 09/15/16 at 04: 30 Acetaminophen (Tylenol Tab) 325 mg Q6H PRN PO PAIN AND OR ELEVATED TEMP Last administered on 09/15/16 22:59; Admin Dose 325 MG; Start 09/15/16 at 23:00 Lorazepam (Ativan) 1 mg Q1H PRN IV CONTROL WITHDRAWAL SYMPTOMS Last administered on 09/16/16 20:54; Admin Dose 1 MG; Start 09/16/16 at 12:30 Sucralfate 1 gm 1 gm QID PO Last administered on 09/17/16 21:56; Admin Dose 1 GM; Start 09/16/16 at 13:00 Octreotide Acetate 500 mcg/ Sodium Chloride 50 ml @ 2.5 mls/hr Q20H IV Last administered on 09/17/16 21:44; Admin Dose 2.5 MLS/HR; Start 09/17/16 at 18:00 Pantoprazole/ Sodium Chloride (Protonix Iv/NS) 100 ml @ 10 mls/hr Q10H IV Last administered on 09/18/16 05:19; Admin Dose 10 MLS/HR; Start 09/17/16 at 18 :00 Zolpidem Tartrate (Ambien) 5 mg HS PRN PO INSOMNIA Last administered on 00:17; Admin Dose 5 MG; Start 09/18/16 at 00:30 DAWNA VIERA MD Sep 18, 2016 10:37
[2016-09-18 10:54] LABS: EOSINOPHILS # 0.1 10^3/ul (0.0-0.5); LYMPHOCYTES # 0.5 10^3/ul (0.8-2.9); MONOCYTE # 0.2 10^3/ul (0.3-0.9); NEUTROPHIL # 0.2 10^3/ul (1.6-7.5)
[2016-09-18 10:55] LABS: ANISOCYTOSIS 1+; HYPOCHROMASIA 1+; MICROCYTOSIS 1+; PLATELET ESTIMATE PLT APPEAR DECREASED
[2016-09-18] MEDS ORDERED: PHYTONADIONE 5 MG TAB PO ONE (11:30)
--- NOTE | 2016-09-18 12:08 | CONS ---
Date/Time of Note Date/Time of Note DATE: 09/18/16 TIME: 11:50 Assessment/Plan Assessment/Plan Chief Complaint/Hosp Course 40 yo male with alcoholic cirrhosis admitted with alcohol intoxication and loss of consciousness found with pancytopenia. # Pancytopenia -this is likely acute on chronic. The acute component is secondary to bone marrow suppression from alcohol toxicity. The chronic component is secondary to his underlying cirrhosis. Peripheral smear was reviewed and there were no evidence of blasts nor dysplastic cells to suggest an underlying bone marrow hematologic dysfunction or malignancy. -will continue to monitor counts -if counts continue to drop or there any concern for hematogic malignancy,will perform bone marrow bx at that time. -would only transfuse if platelets are < 10 or there is evidence of bleeding. try to keep Hg> 7.5 # Alcoholism -continue counseling patient on alcoholism Approximately 40 min were spent at patient's bedside and in coordination of his care Problems: Consultation Date/Type/Reason Admit Date/Time Sep 15, 2016 at 04:28 Date of Consultation: Sep 18, 2016 Type of Consultation: hematology Reason for Consultation pancytopenia Referring Provider: LARISA COHEN [facility], [facility] Hx of Present Illness 40 yo male with a past medical history of ETOH abuse, cirrhosis, vitiligo, s/p TIPS procedure, who presents with acute loss of consciousness. Pt is an active drinker and was drinking at the time he lost consciousness. He was initially brought in via ambulance to [facility] and was subsequently transferred to [facility] for insurance reasons. Since admission pt has been noted to be pancytopenic with a WBC count at 1.7 which dropped to 0.7, Hg 7.2 and platelet count in the 40's. Although he does have history of variceal bleed, patient currently denies any hematemesis or GI bleed. Since admission patient has been transfused 2 units of PRBCs and his Hg has remained stable in 8's. We have been consulted for patient's pancytopenia. Constitutional: no complaints (Denies fevers chills or sweats) Respiratory: no complaints Cardiovascular: no complaints Gastrointestinal: no complaints Genitourinary: no complaints Past Medical History ETOh abuse, liver cirrhosis, vitiligo Medical History: GERD, GI bleed Past Surgical History s/p TIPS procedure, right lung resection with decorticatio Family History Significant Family History: no pertinent family hx Social History Alcohol Use: heavy (4 beers a day) Smoking Status: Never smoker Drug Use: none Exam/Review of Systems Vital Signs Vitals Vital Signs Date Time Temp Pulse Resp B/P Pulse Ox O2 Delivery O2 Flow Rate FiO2 09/18/16 11:07 98.4 91 20 119/58 94 09/15/16 11:07 Room Air Intake and Output 09/17/16 09/17/16 09/18/16 15:00 23:00 07:00 Intake Total 1860 ml 400 ml Output Total 400 ml Balance 1860 ml 0 ml Exam Constitutional: alert Psych: no complaints Head: atraumatic, normocephalic Eyes: nl conjunctiva ENMT: nl external ears & nose Neck: non-tender, supple Respiratory: clear to auscultation, normal air movement Cardiovascular: nl pulses, regular rate and rhythm Gastrointestinal: soft Musculoskeletal: nl extremities to inspection, nl gait and stance Extremities: normal pulses Results Result Diagram: 09/18/16 0530 09/18/16 0530 Results 24 hrs Laboratory Tests Test 09/17/16 18:03 09/17/16 18:57 09/18/16 05:30 Hematocrit 25.8 L 25.1 L Hemoglobin 8.6 L 8.4 L Lab Scanned Report REFERENCE LAB Anion Gap 17 H Anisocytosis 1+ Basophils # 0.0 Basophils % 1.0 Blood Morphology Comment Blood Urea Nitrogen 5 L Calcium Level 8.5 Carbon Dioxide Level 23 Chloride Level 104 Creatinine 0.63 Eosinophils # 0.1 Eosinophils % 9.0 H Glucose Level 79 Hypochromasia 1+ Lymphocytes # 0.5 L Lymphocytes % 48.0 Mean Corpuscular Hemoglobin 26.8 L Mean Corpuscular Hemoglobin Concent 33.6 Mean Corpuscular Volume 79.6 L Mean Platelet Volume 9.4 Microcytosis 1+ Monocytes # 0.2 L Monocytes % 20.0 H Neutrophils # 0.2 L Neutrophils % 22.0 L Nucleated Red Blood Cells % 1.0 H Platelet Count 48 L Platelet Estimate PLT APPEAR DECREASED Potassium Level 3.6 Red Blood Count 3.16 L Red Cell Distribution Width 16.9 H Sodium Level 140 White Blood Count 1.0 #L Medications Medications Current Medications Ondansetron HCl (Zofran Inj) 4 mg Q6H PRN IV NAUSEA AND/OR VOMITING Last administered on 09/15/16t 04:41; Admin Dose 4 MG; Start 09/15/16 at 04:30 Nitroglycerin (Nitroglycerin (Sl Tab) 0.4 Mg) 1 tab Q5M PRN SL CHEST PAIN; Start 09/15/16 at 04:30 Ibuprofen (Motrin) 600 mg Q6H PRN PO PAIN LEVEL 1-3 OR FEVER Last administered on 09/17/16 06:13; Admin Dose 600 MG; Start 09/15/16 at 04:30 Morphine Sulfate (morphine) 2 mg Q4H PRN IV PAIN LEVEL 7-10 Last administered on 09/17/16 21:32; Admin Dose 2 MG; Start 09/15/16 at 04:30 Docusate Sodium (Colace) 100 mg Q12H PRN PO CONSTIPATION; Start 09/15/16 at 04: 30 Acetaminophen (Tylenol Tab) 325 mg Q6H PRN PO PAIN AND OR ELEVATED TEMP Last administered on 09/15/16 22:59; Admin Dose 325 MG; Start 09/15/16 at 23:00 Lorazepam (Ativan) 1 mg Q1H PRN IV CONTROL WITHDRAWAL SYMPTOMS Last administered on 09/16/16 20:54; Admin Dose 1 MG; Start 09/16/16 at 12:30 Sucralfate 1 gm 1 gm QID PO Last administered on 09/18/16 10:37; Admin Dose 1 GM; Start 09/16/16 at 13:00 Octreotide Acetate 500 mcg/ Sodium Chloride 50 ml @ 2.5 mls/hr Q20H IV Last administered on 09/17/16 21:44; Admin Dose 2.5 MLS/HR; Start 09/17/16 at 18:00 Pantoprazole/ Sodium Chloride (Protonix Iv/NS) 100 ml @ 10 mls/hr Q10H IV Last administered on 09/18/16 05:19; Admin Dose 10 MLS/HR; Start 09/17/16 at 18 :00 Zolpidem Tartrate (Ambien) 5 mg HS PRN PO INSOMNIA Last administered on 00:17; Admin Dose 5 MG; Start 09/18/16 at 00:30 Folic Acid (Folic Acid) 1 mg DAILY PO ; Start 09/19/16 at 09:00 IONA PHILIPPE M.D. Sep 18, 2016 12:05
[2016-09-18] MEDS: OCTREOTIDE 500 MCG in SOD CHLORIDE 0.9% 49 ML IV SCH (14:24)
[2016-09-19] VITALS (11 sets, daily range): BP systolic 117–129; BP diastolic 67–72; PULSE 86–96; RESP 20
[2016-09-19] MEDS: PANTOPRAZOLE IV 80 MG in SOD CHLORIDE 0.9% 100 ML IV SCH (00:37)
[2016-09-19] MEDS: morphine 2 MG INJ IV PRN (00:51)
--- NOTE | 2016-09-19 07:13 | PN ---
Date/Time of Note Date/Time of Note DATE: 09/19/16 TIME: 07:09 Assessment/Plan VTE Prophylaxis VTE Prophylaxis Intervention: other Lines/Catheters [facility] Peripheral IV Urinary Cath still in place: No Assessment/Plan Problems: (1) Cirrhosis of liver Status: Chronic Comment: Patient is relatively stable at this point in time. Please see the note from Dr. Lira which is deeply appreciated. Continue treatment and supportive care. Qualifiers: Hepatic cirrhosis type: alcoholic cirrhosis Ascites presence: without ascites Qualified Code: K70.30 - Alcoholic cirrhosis of liver without ascites (2) Esophageal varices Status: Chronic Comment: No further evidence of bleeding at this time. And given his transition the pantoprazole to oral and inguinal at the GI consult and transition the octreotide to off. If they do not do it then I will do that for them by morning Qualifiers: Esophageal varices type: secondary Esophageal varices bleeding: without bleeding Qualified Code: I85.10 - Secondary esophageal varices without bleeding (3) Splenic pancytopenia syndrome Status: Chronic Comment: This is part of the pancytopenia. Direct toxic effects on the bone marrow are also part of this (4) Alcoholism with alcohol dependence Status: Chronic Comment: No active evidence of withdrawal at this time the patient has been re- counseled. At discharge we will have to offer him a chance to go to rehab again. He will have course obviously been detoxed here Qualifiers: Substance use status: other alcohol-induced disorder Qualified Code: F10.288 - Alcohol dependence with other alcohol-induced disorder Subjective 24 Hr Interval Summary Constitutional: no complaints Respiratory: no complaints Cardiovascular: no complaints Gastrointestinal: no complaints (Specifically denies nausea vomiting pain cramping diarrhea melena or bright red blood per rectum etc.) Genitourinary: no complaints Exam/Review of Systems Vital Signs Vitals Vital Signs Date Time Temp Pulse Resp B/P Pulse Ox O2 Delivery O2 Flow Rate FiO2 09/19/16 04:23 93 09/19/16 00:00 99.0 127/72 92 09/18/16 20:00 20 09/15/16 11:07 Room Air Intake and Output 09/18/16 09/18/16 09/19/16 15:00 23:00 07:00 Intake Total 420 ml Output Total 800 ml Balance -380 ml Exam Constitutional: alert, oriented Respiratory: clear to auscultation, normal air movement Cardiovascular: nl pulses, regular rate and rhythm Gastrointestinal: nl liver, spleen, non-tender, soft Results Result Diagram: 09/18/1630 09/18/16 05 Medications Medications Current Medications Ondansetron HCl (Zofran Inj) 4 mg Q6H PRN IV NAUSEA AND/OR VOMITING Last administered on 09/15/16 04:41; Admin Dose 4 MG; Start 09/15/16 at 04:30 Nitroglycerin (Nitroglycerin (Sl Tab) 0.4 Mg) 1 tab Q5M PRN SL CHEST PAIN; Start 09/15/16 at 04:30 Ibuprofen (Motrin) 600 mg Q6H PRN PO PAIN LEVEL 1-3 OR FEVER Last administered on 09/17/16 06:13; Admin Dose 600 MG; Start 09/15/16 at 04:30 Morphine Sulfate (morphine) 2 mg Q4H PRN IV PAIN LEVEL 7-10 Last administered on 09/19/16 00:51; Admin Dose 2 MG; Start 09/15/16 at 04:30 Docusate Sodium (Colace) 100 mg Q12H PRN PO CONSTIPATION; Start 09/15/16 at 04: 30 Acetaminophen (Tylenol Tab) 325 mg Q6H PRN PO PAIN AND OR ELEVATED TEMP Last administered on 09/15/16 22:59; Admin Dose 325 MG; Start 09/15/16 at 23:00 Lorazepam (Ativan) 1 mg Q1H PRN IV CONTROL WITHDRAWAL SYMPTOMS Last administered on 09/16/16 20:54; Admin Dose 1 MG; Start 09/16/16 at 12:30 Sucralfate 1 gm 1 gm QID PO Last administered on 09/18/16 20:09; Admin Dose 1 GM; Start 09/16/16 at 13:00 Octreotide Acetate 500 mcg/ Sodium Chloride 50 ml @ 2.5 mls/hr Q20H IV Last administered on 09/18/16 14:24; Admin Dose 2.5 MLS/HR; Start 09/17/16 at 18:00 Pantoprazole/ Sodium Chloride (Protonix Iv/NS) 100 ml @ 10 mls/hr Q10H IV Last administered on 09/19/16 00:37; Admin Dose 10 MLS/HR; Start 09/17/16 at 18 :00 Zolpidem Tartrate (Ambien) 5 mg HS PRN PO INSOMNIA Last administered on t 23:01; Admin Dose 5 MG; Start 09/18/16 at 00:30 Folic Acid (Folic Acid) 1 mg DAILY PO ; Start 09/19/16 at 09:00 DAWNA VIERA MD Sep 19, 2016 07:12
[2016-09-19 07:19] LABS: INR 1.49; PARTIAL THROMBOPLASTIN TIME 38.6 Sec (25.0-35.0); PROTIME 18.1 Sec (12.2-14.2); PT RATIO 1.4
[2016-09-19 07:25] LABS: HEMATOCRIT 25.4 % (42.0-52.0); HEMOGLOBIN 8.6 g/dl (14.0-18.0); MEAN CORPUSCULAR VOLUME 79.6 fl (82.0-101.0); MEAN PLATELET VOLUME 8.6 fl (7.4-10.4); PLATELET COUNT 63 10^3/UL (140-440); RED CELL DISTRIBUTION WIDTH 17.2 % (11.5-14.5); UNCORRECTED WBC 1.8 10^3/ul (4.8-10.8); WHITE BLOOD COUNT 1.8 10^3/ul (4.8-10.8)
[2016-09-19 07:27] LABS: CONDITION 1; LH ANALYZER COMMENTS 1; SUSPECT 1
[2016-09-19 07:45] LABS: POTASSIUM 3.4 mmol/L (3.5-5.1)
[2016-09-19 07:48] LABS: CALCIUM 8.4 mg/dl (8.4-10.2); CREATININE 0.63 mg/dl (0.61-1.24)
[2016-09-19] MEDS: SUCRALFATE 1 GM TAB PO SCH ×4 (08:35→21:07)
[2016-09-19] MEDS: FOLIC ACID 1 MG TAB PO SCH (08:35)
[2016-09-19 10:56] LABS: EOSINOPHILS # 0.1 10^3/ul (0.0-0.5); MONOCYTE # 0.3 10^3/ul (0.3-0.9); NEUTROPHIL # 0.3 10^3/ul (1.6-7.5)
[2016-09-19 10:57] LABS: ANISOCYTOSIS 1+; HYPOCHROMASIA 1+; MICROCYTOSIS 1+
[2016-09-19] MEDS: OCTREOTIDE 500 MCG in SOD CHLORIDE 0.9% 49 ML IV SCH (11:30)
[2016-09-19] MEDS: PANTOPRAZOLE (EC) 40 MG TAB PO SCH (17:53)
[2016-09-19] MEDS: ZOLPIDEM 5 MG TAB PO PRN (22:31)
[2016-09-20] VITALS (10 sets, daily range): BP systolic 114–125; BP diastolic 68–71; PULSE 85–98; RESP 15–20
[2016-09-20] MEDS: morphine 2 MG INJ IV PRN ×3 (01:22→21:21)
[2016-09-20] MEDS: OCTREOTIDE 500 MCG in SOD CHLORIDE 0.9% 49 ML IV SCH ×2 (06:20→22:16)
[2016-09-20] MEDS: PANTOPRAZOLE (EC) 40 MG TAB PO SCH ×2 (06:20→18:04)
[2016-09-20 08:00] LABS: POTASSIUM 3.5 mmol/L (3.5-5.1)
[2016-09-20 08:02] LABS: CREATININE 0.58 mg/dl (0.61-1.24)
[2016-09-20 08:03] LABS: CALCIUM 8.8 mg/dl (8.4-10.2)
[2016-09-20 08:19] LABS: HEMATOCRIT 30.1 % (42.0-52.0); HEMOGLOBIN 10.2 g/dl (14.0-18.0); MEAN CORPUSCULAR HGB CONC 33.8 g/dl (32.0-37.0); MEAN CORPUSCULAR VOLUME 79.8 fl (82.0-101.0); MEAN PLATELET VOLUME 8.8 fl (7.4-10.4); PLATELET COUNT 78 10^3/UL (140-440); RED BLOOD COUNT 3.78 10^6/ul (4.70-6.10); RED CELL DISTRIBUTION WIDTH 17.3 % (11.5-14.5); UNCORRECTED WBC 2.1 10^3/ul (4.8-10.8); WHITE BLOOD COUNT 2.1 10^3/ul (4.8-10.8)
[2016-09-20] MEDS: FOLIC ACID 1 MG TAB PO SCH (08:30)
[2016-09-20] MEDS: SUCRALFATE 1 GM TAB PO SCH ×4 (08:30→20:52)
[2016-09-20 08:33] LABS: CONDITION 1; LH ANALYZER COMMENTS 1; SUSPECT 1
[2016-09-20 10:49] LABS: EOSINOPHILS # 0.1 10^3/ul (0.0-0.5); LYMPHOCYTES # 0.9 10^3/ul (0.8-2.9); MONOCYTE # 0.2 10^3/ul (0.3-0.9); NEUTROPHIL # 0.9 10^3/ul (1.6-7.5)
--- NOTE | 2016-09-20 13:47 | PN ---
Date/Time of Note Date/Time of Note DATE: 09/20/16 TIME: 13:37 Assessment/Plan VTE Prophylaxis VTE Prophylaxis Intervention: SCD's Lines/Catheters IV Catheter Type (from Nrs): Peripheral IV Urinary Cath still in place: No Assessment/Plan Assessment/Plan 1. Pancytopenia, due to alcohol and liver cirrhosis, no further work up at this time 2. Stool positive for OB, follow up with GI 3. Esophageal varices, n/o TIPS procedure 4. Alcoholic liver disease 5. EtOH abuse, encourage abstinence Subjective 24 Hr Interval Summary Free Text/Dictation no nausea or vomiting. no pain Exam/Review of Systems Vital Signs Vitals Vital Signs Date Time Temp Pulse Resp B/P Pulse Ox O2 Delivery O2 Flow Rate FiO2 09/20/16 12:11 98 09/20/16 11:46 98.9 16 122/69 96 Intake and Output 09/19/16 09/19/16 09/20/16 14:59 22:59 06:59 Intake Total 450 ml 600 ml 50 ml Output Total 850 ml 720 ml Balance -400 ml -120 ml 50 ml Exam Constitutional: alert, oriented, well developed Psych: nl mood/affect, no complaints Head: atraumatic, normocephalic Eyes: EOMI, PERRL, nl conjunctiva, nl lids, nl sclera ENMT: mucosa pink and moist, nl external ears & nose, nl lips & teeth, nl nasal mucosa & septum Neck: non-tender, supple Respiratory: clear to auscultation, normal air movement Cardiovascular: nl pulses, regular rate and rhythm, No S3, No S4, No bruits, No diastolic murmur, No edema, No gallop, No irregular rhythm, No jugular venous distention (JVD), No murmurs/extra sounds, No rub, No systolic murmur Gastrointestinal: nl liver, spleen, non-tender, soft Extremities: normal pulses, No calf tenderness, No clubbing, No cyanosis, No edema, No palpable cord, No pitting pedal edema, No tenderness Neurological: CARDIAC CATH LAB RADIOLOGY TECHNOLOGIST II-XII intact, nl mental status, nl speech, nl strength Skin: nl turgor, rash or lesions Lymph: nl lymph nodes Results Result Diagram: 09/20/16 0558 09/20/16 0558 Results 24 hrs Laboratory Tests Test 09/19/16 22:30 09/20/16 05:58 Stool Occult Blood POSITIVE Anion Gap 17 H Band Neutrophils % 1.0 Basophils # 0.0 Basophils % 1.0 Blood Morphology Comment Blood Urea Nitrogen 5 L Calcium Level 8.8 Carbon Dioxide Level 26 Chloride Level 101 Creatinine 0.58 L Eosinophils # 0.1 Eosinophils % 4.0 Glucose Level 95 Hematocrit 30.1 L Hemoglobin 10.2 L Lymphocytes # 0.9 Lymphocytes % 43.0 Mean Corpuscular Hemoglobin 27.0 L Mean Corpuscular Hemoglobin Concent 33.8 Mean Corpuscular Volume 79.8 L Mean Platelet Volume 8.8 Monocytes # 0.2 L Monocytes % 10.0 Neutrophils # 0.9 L Neutrophils % 41.0 Nucleated Red Blood Cells # Nucleated Red Blood Cells % Platelet Count 78 #L Potassium Level 3.5 Red Blood Count 3.78 L Red Cell Distribution Width 17.3 H Sodium Level 140 White Blood Count 2.1 L Medications Medications Current Medications Ondansetron HCl (Zofran Inj) 4 mg Q6H PRN IV NAUSEA AND/OR VOMITING Last administered on 09/15/16 04:41; Admin Dose 4 MG; Start 09/15/16 at 04:30 Nitroglycerin (Nitroglycerin (Sl Tab) 0.4 Mg) 1 tab Q5M PRN SL CHEST PAIN; Start 09/15/16 at 04:30 Ibuprofen (Motrin) 600 mg Q6H PRN PO PAIN LEVEL 1-3 OR FEVER Last administered on 09/17/16 06:13; Admin Dose 600 MG; Start 09/15/16 at 04:30 Morphine Sulfate (morphine) 2 mg Q4H PRN IV PAIN LEVEL 7-10 Last administered on 09/20/16 12:04; Admin Dose 2 MG; Start 09/15/16 at 04:30 Docusate Sodium (Colace) 100 mg Q12H PRN PO CONSTIPATION; Start 09/15/16 at 04: 30 Acetaminophen (Tylenol Tab) 325 mg Q6H PRN PO PAIN AND OR ELEVATED TEMP Last administered on 09/15/16 22:59; Admin Dose 325 MG; Start 09/15/16 at 23:00 Lorazepam (Ativan) 1 mg Q1H PRN IV CONTROL WITHDRAWAL SYMPTOMS Last administered on 09/16/16 20:54; Admin Dose 1 MG; Start 09/16/16 at 12:30 Sucralfate 1 gm 1 gm QID PO Last administered on 09/20/16 13:32; Admin Dose 1 GM; Start 09/16/16 at 13:00 Octreotide Acetate/Sodium Chloride (Sandostatin/NS) 50 ml @ 2.5 mls/hr Q20H IV Last administered on 09/20/16 06:20; Admin Dose 2.5 MLS/HR; Start 09/17/16 at 18:00 Zolpidem Tartrate (Ambien) 5 mg HS PRN PO INSOMNIA Last administered on 22:31; Admin Dose 5 MG; Start 09/18/16 at 00:30 Folic Acid (Folic Acid) 1 mg DAILY PO Last administered on 09/20/16 08:30; Admin Dose 1 MG; Start 09/19/16 at 09:00 Pantoprazole (Protonix Tab) 40 mg BID@06,18 PO Last administered on 09/20/16 06:20; Admin Dose 40 MG; Start 09/19/16 at 18:00 VIRI MINER MD Sep 20, 2016 13:47
--- NOTE | 2016-09-20 15:00 | CONS ---
Date/Time of Note Date/Time of Note DATE: 09/20/16 TIME: 14:58 Assessment/Plan Assessment/Plan Chief Complaint/Hosp Course 40 yo male with alcoholic cirrhosis admitted with alcohol intoxication and loss of consciousness found with pancytopenia. pancytopenia is improving now that patient is not actively drinking. # Pancytopenia -this is likely acute on chronic. The acute component is secondary to bone marrow suppression from alcohol toxicity. The chronic component is secondary to his underlying cirrhosis. Peripheral smear was reviewed and there were no evidence of blasts nor dysplastic cells to suggest an underlying bone marrow hematologic dysfunction or malignancy. -will continue to monitor counts. -if counts continue to drop or there any concern for hematogic malignancy,will perform bone marrow bx at that time. -would only transfuse if platelets are < 10 or there is evidence of bleeding. try to keep Hg> 7.5 # Alcoholism -continue counseling patient on alcoholism Approximately 40 min were spent at patient's bedside and in coordination of his care Problems: Consultation Date/Type/Reason Admit Date/Time Sep 15, 2016 at 04:28 Initial Consult Date 09/18/16 Type of Consultation: hematology Reason for Consultation thrombocytopenia Referring Provider: LARISA COHEN MD, [facility] 24 HR Interval Summary Free Text/Dictation no bleeding. no acute overnight events Exam/Review of Systems Vital Signs Vitals Vital Signs Date Time Temp Pulse Resp B/P Pulse Ox O2 Delivery O2 Flow Rate FiO2 09/20/16 12:11 98 09/20/16 11:46 98.9 16 122/69 96 Intake and Output 09/19/16 09/19/16 09/20/16 15:00 23:00 07:00 Intake Total 450 ml 600 ml 1050 ml Output Total 850 ml 720 ml Balance -400 ml -120 ml 1050 ml Exam Constitutional: alert, oriented Psych: no complaints Head: atraumatic, normocephalic Eyes: nl conjunctiva ENMT: nl external ears & nose Neck: non-tender, supple Respiratory: clear to auscultation, normal air movement Cardiovascular: nl pulses, regular rate and rhythm Gastrointestinal: soft Musculoskeletal: nl extremities to inspection, nl gait and stance Results Result Diagram: 09/20/16 0558 09/20/16 0558 Results 24 hrs Laboratory Tests Test 09/19/16 22:30 09/20/16 05:58 Stool Occult Blood POSITIVE Anion Gap 17 H Band Neutrophils % 1.0 Basophils # 0.0 Basophils % 1.0 Blood Morphology Comment Blood Urea Nitrogen 5 L Calcium Level 8.8 Carbon Dioxide Level 26 Chloride Level 101 Creatinine 0.58 L Eosinophils # 0.1 Eosinophils % 4.0 Glucose Level 95 Hematocrit 30.1 L Hemoglobin 10.2 L Lymphocytes # 0.9 Lymphocytes % 43.0 Mean Corpuscular Hemoglobin 27.0 L Mean Corpuscular Hemoglobin Concent 33.8 Mean Corpuscular Volume 79.8 L Mean Platelet Volume 8.8 Monocytes # 0.2 L Monocytes % 10.0 Neutrophils # 0.9 L Neutrophils % 41.0 Nucleated Red Blood Cells # Nucleated Red Blood Cells % Platelet Count 78 #L Potassium Level 3.5 Red Blood Count 3.78 L Red Cell Distribution Width 17.3 H Sodium Level 140 White Blood Count 2.1 L Medications Medications Current Medications Ondansetron HCl (Zofran Inj) 4 mg Q6H PRN IV NAUSEA AND/OR VOMITING Last administered on 09/15/16 04:41; Admin Dose 4 MG; Start 09/15/16 at 04:30 Nitroglycerin (Nitroglycerin (Sl Tab) 0.4 Mg) 1 tab Q5M PRN SL CHEST PAIN; Start 09/15/16 at 04:30 Ibuprofen (Motrin) 600 mg Q6H PRN PO PAIN LEVEL 1-3 OR FEVER Last administered on 09/17/16 06:13; Admin Dose 600 MG; Start 09/15/16 at 04:30 Morphine Sulfate (morphine) 2 mg Q4H PRN IV PAIN LEVEL 7-10 Last administered on 09/20/16 12:04; Admin Dose 2 MG; Start 09/15/16 at 04:30 Docusate Sodium (Colace) 100 mg Q12H PRN PO CONSTIPATION; Start 09/15/16 at 04: 30 Acetaminophen (Tylenol Tab) 325 mg Q6H PRN PO PAIN AND OR ELEVATED TEMP Last administered on 09/15/16 22:59; Admin Dose 325 MG; Start 09/15/16 at 23:00 Lorazepam (Ativan) 1 mg Q1H PRN IV CONTROL WITHDRAWAL SYMPTOMS Last administered on 09/16/16 20:54; Admin Dose 1 MG; Start 09/16/16 at 12:30 Sucralfate 1 gm 1 gm QID PO Last administered on 09/20/16 13:32; Admin Dose 1 GM; Start 09/16/16 at 13:00 Octreotide Acetate/Sodium Chloride (Sandostatin/NS) 50 ml @ 2.5 mls/hr Q20H IV Last administered on 09/20/16 06:20; Admin Dose 2.5 MLS/HR; Start 09/17/16 at 18:00 Zolpidem Tartrate (Ambien) 5 mg HS PRN PO INSOMNIA Last administered on 22:31; Admin Dose 5 MG; Start 09/18/16 at 00:30 Folic Acid (Folic Acid) 1 mg DAILY PO Last administered on 09/20/16 08:30; Admin Dose 1 MG; Start 09/19/16 at 09:00 Pantoprazole (Protonix Tab) 40 mg BID@06,18 PO Last administered on 09/20/16 06:20; Admin Dose 40 MG; Start 09/19/16 at 18:00 IONA PHILIPPE M.D. Sep 20, 2016 14:59
[2016-09-21] VITALS (12 sets, daily range): BP systolic 105–121; BP diastolic 55–72; PULSE 68–99; RESP 18–20
[2016-09-21] MEDS: ZOLPIDEM 5 MG TAB PO PRN (02:26)
[2016-09-21] MEDS: PANTOPRAZOLE (EC) 40 MG TAB PO SCH ×2 (05:47→17:28)
[2016-09-21 08:21] LABS: HEMOGLOBIN 9.7 g/dl (14.0-18.0); MEAN CORPUSCULAR HEMOGLOBIN 26.8 pg (29.0-33.0); MEAN CORPUSCULAR HGB CONC 33.5 g/dl (32.0-37.0); MEAN PLATELET VOLUME 9.2 fl (7.4-10.4); PLATELET COUNT 72 10^3/UL (140-440); RED BLOOD COUNT 3.62 10^6/ul (4.70-6.10); RED CELL DISTRIBUTION WIDTH 17.7 % (11.5-14.5)
[2016-09-21 08:22] LABS: POTASSIUM 3.7 mmol/L (3.5-5.1)
[2016-09-21 08:24] LABS: CONDITION 1; LH ANALYZER COMMENTS 1; SUSPECT 1
[2016-09-21 08:25] LABS: CREATININE 0.57 mg/dl (0.61-1.24)
[2016-09-21 08:26] LABS: CALCIUM 8.6 mg/dl (8.4-10.2)
[2016-09-21] MEDS: SUCRALFATE 1 GM TAB PO SCH ×4 (09:26→20:32)
[2016-09-21] MEDS: FOLIC ACID 1 MG TAB PO SCH (09:26)
[2016-09-21 13:17] LABS: EOSINOPHILS # 0.1 10^3/ul (0.0-0.5); LYMPHOCYTES # 0.7 10^3/ul (0.8-2.9); MONOCYTE # 0.3 10^3/ul (0.3-0.9); NEUTROPHIL # 0.8 10^3/ul (1.6-7.5)
[2016-09-21 13:19] LABS: ANISOCYTOSIS 1+; HYPOCHROMASIA 2+; MICROCYTOSIS 1+; PLATELET ESTIMATE PLT APPEAR DECREASED
--- NOTE | 2016-09-21 14:47 | PN ---
Date/Time of Note Date/Time of Note DATE: 09/21/16 TIME: 14:44 Assessment/Plan VTE Prophylaxis VTE Prophylaxis Intervention: SCD's Lines/Catheters IV Catheter Type (from Nrs): Peripheral IV Urinary Cath still in place: No Assessment/Plan Assessment/Plan 1. Pancytopenia, due to alcohol and liver cirrhosis, no further work up at this time 2. Stool positive for OB, follow up with GI, discussed with GI today, no EGD at this time, advance diet 3. Esophageal varices, n/o TIPS procedure 4. Alcoholic liver disease 5. EtOH abuse, encourage abstinence Subjective 24 Hr Interval Summary Free Text/Dictation no nausea or vomiting, no active bleeding Exam/Review of Systems Vital Signs Vitals Vital Signs Date Time Temp Pulse Resp B/P Pulse Ox O2 Delivery O2 Flow Rate FiO2 09/21/16 12:14 94 09/21/16 11:15 98.8 20 112/58 94 Intake and Output 09/20/16 09/20/16 09/21/16 15:00 23:00 07:00 Intake Total 50 ml 217.5 ml Balance 50 ml 217.5 ml Exam Constitutional: alert, oriented, well developed Psych: nl mood/affect, no complaints Head: atraumatic, normocephalic Eyes: EOMI, PERRL, nl conjunctiva, nl lids, nl sclera ENMT: mucosa pink and moist, nl external ears & nose, nl lips & teeth, nl nasal mucosa & septum Neck: non-tender, supple Respiratory: clear to auscultation, normal air movement Cardiovascular: nl pulses, regular rate and rhythm Gastrointestinal: nl liver, spleen, non-tender, soft, No ascites, No bowel sounds, No distended, No firm, No hepatomegaly, No mass , No rebound or guarding, No splenomegaly, No surgical scars, No tender Musculoskeletal: nl extremities to inspection Extremities: normal pulses 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, nl mental status, nl speech, nl strength Skin: nl turgor, rash or lesions Lymph: nl lymph nodes Results Result Diagram: 09/21/16 0700 09/21/16 0700 Results 24 hrs Laboratory Tests Test 09/21/16 07:00 Anion Gap 16 Anisocytosis 1+ Band Neutrophils % 2.0 Basophils # 0.0 Basophils % 2.0 Blood Morphology Comment Blood Urea Nitrogen 5 L Calcium Level 8.6 Carbon Dioxide Level 26 Chloride Level 101 Creatinine 0.57 L Eosinophils # 0.1 Eosinophils % 3.0 Glucose Level 117 Hematocrit 29.0 L Hemoglobin 9.7 L Hypochromasia 2+ Lymphocytes # 0.7 L Lymphocytes % 37.0 Mean Corpuscular Hemoglobin 26.8 L Mean Corpuscular Hemoglobin Concent 33.5 Mean Corpuscular Volume 80.0 L Mean Platelet Volume 9.2 Metamyelocytes # 0.0 Metamyelocytes % 1.0 H Microcytosis 1+ Monocytes # 0.3 Monocytes % 15.0 H Neutrophils # 0.8 L Neutrophils % 40.0 Nucleated Red Blood Cells # Nucleated Red Blood Cells % Platelet Count 72 L Platelet Estimate PLT APPEAR DECREASED Potassium Level 3.7 Red Blood Count 3.62 L Red Cell Distribution Width 17.7 H Sodium Level 139 White Blood Count 2.0 L Medications Medications Current Medications Ondansetron HCl (Zofran Inj) 4 mg Q6H PRN IV NAUSEA AND/OR VOMITING Last administered on 09/15/16 04:41; Admin Dose 4 MG; Start 09/15/16 at 04:30 Nitroglycerin (Nitroglycerin (Sl Tab) 0.4 Mg) 1 tab Q5M PRN SL CHEST PAIN; Start 09/15/16 at 04:30 Ibuprofen (Motrin) 600 mg Q6H PRN PO PAIN LEVEL 1-3 OR FEVER Last administered on 09/17/16 06:13; Admin Dose 600 MG; Start 09/15/16 at 04:30 Morphine Sulfate (morphine) 2 mg Q4H PRN IV PAIN LEVEL 7-10 Last administered on 09/20/16 21:21; Admin Dose 2 MG; Start 09/15/16 at 04:30 Docusate Sodium (Colace) 100 mg Q12H PRN PO CONSTIPATION; Start 09/15/16 at 04: 30 Acetaminophen (Tylenol Tab) 325 mg Q6H PRN PO PAIN AND OR ELEVATED TEMP Last administered on 09/15/16 22:59; Admin Dose 325 MG; Start 09/15/16 at 23:00 Lorazepam (Ativan) 1 mg Q1H PRN IV CONTROL WITHDRAWAL SYMPTOMS Last administered on 09/16/16 20:54; Admin Dose 1 MG; Start 09/16/16 at 12:30 Sucralfate 1 gm 1 gm QID PO Last administered on 09/21/16 12:35; Admin Dose 1 GM; Start 09/16/16 at 13:00 Octreotide Acetate/Sodium Chloride (Sandostatin/NS) 50 ml @ 2.5 mls/hr Q20H IV Last administered on 09/20/16 22:16; Admin Dose 2.5 MLS/HR; Start 09/17/16 at 18:00 Zolpidem Tartrate (Ambien) 5 mg HS PRN PO INSOMNIA Last administered on 02:26; Admin Dose 5 MG; Start 09/18/16 at 00:30 Folic Acid (Folic Acid) 1 mg DAILY PO Last administered on 09/21/16 09:26; Admin Dose 1 MG; Start 09/19/16 at 09:00 Pantoprazole (Protonix Tab) 40 mg BID@06,18 PO Last administered on 09/21/16 05:47; Admin Dose 40 MG; Start 09/19/16 at 18:00 VIRI MINER MD Sep 21, 2016 14:47
--- NOTE | 2016-09-21 14:51 | CONS ---
Date/Time of Note Date/Time of Note DATE: 09/21/16 TIME: 14:47 Assessment/Plan Assessment/Plan Additional Assessment/Plan Hematemesis * Continue PPI therapy and Carafate * Monitor H&H every 6hr, transfuse 2 units for hemoglobin less than 7.5 Esophageal varices History of TIPS procedure * Patient was transferred to [facility] [place] and had TIPS procedure 07/27 * Doppler on 07-19-17: The portal vein is patent with a peak systolic velocity of 74 cm/sec There is a TIPS which is widely patent. The peak systolic velocity in the shunt is 129 cm/sec. EtOH abuse * Encourage abstinence Further recommendations pending clinical course Patient seen in collaboration with Dr. Dumont Consultation Date/Type/Reason Admit Date/Time Sep 15, 2016 at 04:28 Type of Consultation: Gastroenterology Referring Provider: LARISA COHEN MD, [facility] 24 HR Interval Summary Free Text/Dictation Stool OB positive Hemoglobin stable 9.7 TIPS patent per Doppler EGD only if katie red overt bleeding Exam/Review of Systems Vital Signs Vitals Vital Signs Date Time Temp Pulse Resp B/P Pulse Ox O2 Delivery O2 Flow Rate FiO2 09/21/16 12:14 94 09/21/16 11:15 98.8 20 112/58 94 Intake and Output 09/20/16 09/20/16 09/21/16 15:00 23:00 07:00 Intake Total 50 ml 217.5 ml Balance 50 ml 217.5 ml Exam Constitutional: alert, oriented, well developed Head: normocephalic Eyes: EOMI Respiratory: normal air movement Gastrointestinal: hepatomegaly, non-tender, soft 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 Results Result Diagram: 09/21/16 0700 09/21/16 0700 Results 24 hrs Laboratory Tests Test 09/21/16 07:00 Anion Gap 16 Anisocytosis 1+ Band Neutrophils % 2.0 Basophils # 0.0 Basophils % 2.0 Blood Morphology Comment Blood Urea Nitrogen 5 L Calcium Level 8.6 Carbon Dioxide Level 26 Chloride Level 101 Creatinine 0.57 L Eosinophils # 0.1 Eosinophils % 3.0 Glucose Level 117 Hematocrit 29.0 L Hemoglobin 9.7 L Hypochromasia 2+ Lymphocytes # 0.7 L Lymphocytes % 37.0 Mean Corpuscular Hemoglobin 26.8 L Mean Corpuscular Hemoglobin Concent 33.5 Mean Corpuscular Volume 80.0 L Mean Platelet Volume 9.2 Metamyelocytes # 0.0 Metamyelocytes % 1.0 H Microcytosis 1+ Monocytes # 0.3 Monocytes % 15.0 H Neutrophils # 0.8 L Neutrophils % 40.0 Nucleated Red Blood Cells # Nucleated Red Blood Cells % Platelet Count 72 L Platelet Estimate PLT APPEAR DECREASED Potassium Level 3.7 Red Blood Count 3.62 L Red Cell Distribution Width 17.7 H Sodium Level 139 White Blood Count 2.0 L Medications Medications Current Medications Ondansetron HCl (Zofran Inj) 4 mg Q6H PRN IV NAUSEA AND/OR VOMITING Last administered on 09/15/16 04:41; Admin Dose 4 MG; Start 09/15/16 at 04:30 Nitroglycerin (Nitroglycerin (Sl Tab) 0.4 Mg) 1 tab Q5M PRN SL CHEST PAIN; Start 09/15/16 at 04:30 Ibuprofen (Motrin) 600 mg Q6H PRN PO PAIN LEVEL 1-3 OR FEVER Last administered on 09/17/16 06:13; Admin Dose 600 MG; Start 09/15/16 at 04:30 Morphine Sulfate (morphine) 2 mg Q4H PRN IV PAIN LEVEL 7-10 Last administered on 09/20/16 21:21; Admin Dose 2 MG; Start 09/15/16 at 04:30 Docusate Sodium (Colace) 100 mg Q12H PRN PO CONSTIPATION; Start 09/15/16 at 04: 30 Acetaminophen (Tylenol Tab) 325 mg Q6H PRN PO PAIN AND OR ELEVATED TEMP Last administered on 09/15/16 22:59; Admin Dose 325 MG; Start 09/15/16 at 23:00 Lorazepam (Ativan) 1 mg Q1H PRN IV CONTROL WITHDRAWAL SYMPTOMS Last administered on 09/16/16 20:54; Admin Dose 1 MG; Start 09/16/16 at 12:30 Sucralfate 1 gm 1 gm QID PO Last administered on 09/21/16 12:35; Admin Dose 1 GM; Start 09/16/16 at 13:00 Octreotide Acetate/Sodium Chloride (Sandostatin/NS) 50 ml @ 2.5 mls/hr Q20H IV Last administered on 09/20/16 22:16; Admin Dose 2.5 MLS/HR; Start 09/17/16 at 18:00 Zolpidem Tartrate (Ambien) 5 mg HS PRN PO INSOMNIA Last administered on 02:26; Admin Dose 5 MG; Start 09/18/16 at 00:30 Folic Acid (Folic Acid) 1 mg DAILY PO Last administered on 09/21/16 09:26; Admin Dose 1 MG; Start 09/19/16 at 09:00 Pantoprazole (Protonix Tab) 40 mg BID@,18 PO Last administered on 09/21/16 05:47; Admin Dose 40 MG; Start 09/19/16 at 18:00 CAROLYN BEAUCHAMP Sep 21, 2016 14:51
--- NOTE | 2016-09-21 15:12 | CONS ---
Date/Time of Note Date/Time of Note DATE: 09/21/16 TIME: 15:11 Assessment/Plan Assessment/Plan Chief Complaint/Hosp Course 40 yo male with alcoholic cirrhosis admitted with alcohol intoxication and loss of consciousness found with pancytopenia. pancytopenia is improving now that patient is not actively drinking. # Pancytopenia -this is likely acute on chronic. The acute component is secondary to bone marrow suppression from alcohol toxicity. The chronic component is secondary to his underlying cirrhosis. Peripheral smear was reviewed and there were no evidence of blasts nor dysplastic cells to suggest an underlying bone marrow hematologic dysfunction or malignancy. -will continue to monitor counts. -if counts continue to drop or there any concern for hematogic malignancy,will perform bone marrow bx at that time. -would only transfuse if platelets are < 10 or there is evidence of bleeding. try to keep Hg> 7.5 # Alcoholism -continue counseling patient on alcoholism Approximately 40 min were spent at patient's bedside and in coordination of his care Problems: Consultation Date/Type/Reason Admit Date/Time Sep 15, 2016 at 04:28 Initial Consult Date 09/18/16 Type of Consultation: Hematology Reason for Consultation pancytopenia Referring Provider: LARISA COHEN MD, [facility] 24 HR Interval Summary Free Text/Dictation no acute overnight events. counts are improving Exam/Review of Systems Vital Signs Vitals Vital Signs Date Time Temp Pulse Resp B/P Pulse Ox O2 Delivery O2 Flow Rate FiO2 09/21/16 12:14 94 09/21/16 11:15 98.8 20 112/58 94 Intake and Output 09/20/16 09/20/16 09/21/16 15:00 23:00 07:00 Intake Total 50 ml 217.5 ml Balance 50 ml 217.5 ml Exam Constitutional: alert Psych: nl mood/affect, no complaints Head: normocephalic Eyes: nl conjunctiva ENMT: nl external ears & nose, nl lips & teeth Neck: non-tender, supple Respiratory: clear to auscultation, normal air movement Cardiovascular: regular rate and rhythm Gastrointestinal: soft Musculoskeletal: nl extremities to inspection, nl gait and stance Extremities: normal pulses Results Result Diagram: 09/21/16 0700 09/21/16 0700 Results 24 hrs Laboratory Tests Test 09/21/16 07:00 Anion Gap 16 Anisocytosis 1+ Band Neutrophils % 2.0 Basophils # 0.0 Basophils % 2.0 Blood Morphology Comment Blood Urea Nitrogen 5 L Calcium Level 8.6 Carbon Dioxide Level 26 Chloride Level 101 Creatinine 0.57 L Eosinophils # 0.1 Eosinophils % 3.0 Glucose Level 117 Hematocrit 29.0 L Hemoglobin 9.7 L Hypochromasia 2+ Lymphocytes # 0.7 L Lymphocytes % 37.0 Mean Corpuscular Hemoglobin 26.8 L Mean Corpuscular Hemoglobin Concent 33.5 Mean Corpuscular Volume 80.0 L Mean Platelet Volume 9.2 Metamyelocytes # 0.0 Metamyelocytes % 1.0 H Microcytosis 1+ Monocytes # 0.3 Monocytes % 15.0 H Neutrophils # 0.8 L Neutrophils % 40.0 Nucleated Red Blood Cells # Nucleated Red Blood Cells % Platelet Count 72 L Platelet Estimate PLT APPEAR DECREASED Potassium Level 3.7 Red Blood Count 3.62 L Red Cell Distribution Width 17.7 H Sodium Level 139 White Blood Count 2.0 L Medications Medications Current Medications Ondansetron HCl (Zofran Inj) 4 mg Q6H PRN IV NAUSEA AND/OR VOMITING Last administered on 09/15/16 04:41; Admin Dose 4 MG; Start 09/15/16 at 04:30 Nitroglycerin (Nitroglycerin (Sl Tab) 0.4 Mg) 1 tab Q5M PRN SL CHEST PAIN; Start 09/15/16 at 04:30 Ibuprofen (Motrin) 600 mg Q6H PRN PO PAIN LEVEL 1-3 OR FEVER Last administered on 09/17/16 06:13; Admin Dose 600 MG; Start 09/15/16 at 04:30 Morphine Sulfate (morphine) 2 mg Q4H PRN IV PAIN LEVEL 7-10 Last administered on 09/20/16 21:21; Admin Dose 2 MG; Start 09/15/16 at 04:30 Docusate Sodium (Colace) 100 mg Q12H PRN PO CONSTIPATION; Start 09/15/16 at 04: 30 Acetaminophen (Tylenol Tab) 325 mg Q6H PRN PO PAIN AND OR ELEVATED TEMP Last administered on 09/15/16 22:59; Admin Dose 325 MG; Start 09/15/16 at 23:00 Lorazepam (Ativan) 1 mg Q1H PRN IV CONTROL WITHDRAWAL SYMPTOMS Last administered on 09/16/16 20:54; Admin Dose 1 MG; Start 09/16/16 at 12:30 Sucralfate 1 gm 1 gm QID PO Last administered on 09/21/16 12:35; Admin Dose 1 GM; Start 09/16/16 at 13:00 Octreotide Acetate/Sodium Chloride (Sandostatin/NS) 50 ml @ 2.5 mls/hr Q20H IV Last administered on 09/20/16 22:16; Admin Dose 2.5 MLS/HR; Start 09/17/16 at 18:00 Zolpidem Tartrate (Ambien) 5 mg HS PRN PO INSOMNIA Last administered on 02:26; Admin Dose 5 MG; Start 09/18/16 at 00:30 Folic Acid (Folic Acid) 1 mg DAILY PO Last administered on 09/21/16 09:26; Admin Dose 1 MG; Start 09/19/16 at 09:00 Pantoprazole (Protonix Tab) 40 mg BID@06,18 PO Last administered on 09/21/16 05:47; Admin Dose 40 MG; Start 09/19/16 at 18:00 IONA PHILIPPE M.D. Sep 21, 2016 15:12
[2016-09-21] MEDS: morphine 2 MG INJ IV PRN (22:26)
[2016-09-21] MEDS: OCTREOTIDE 500 MCG in SOD CHLORIDE 0.9% 49 ML IV SCH (22:31)
[2016-09-22] VITALS (10 sets, daily range): BP systolic 108–124; BP diastolic 62–70; PULSE 68–96; RESP 19–20
[2016-09-22] MEDS: ZOLPIDEM 5 MG TAB PO PRN (02:47)
[2016-09-22] MEDS: PANTOPRAZOLE (EC) 40 MG TAB PO SCH ×2 (05:33→18:12)
[2016-09-22 07:13] LABS: HEMATOCRIT 29.4 % (42.0-52.0); HEMOGLOBIN 9.8 g/dl (14.0-18.0); MEAN CORPUSCULAR HEMOGLOBIN 26.6 pg (29.0-33.0); MEAN CORPUSCULAR HGB CONC 33.2 g/dl (32.0-37.0); MEAN PLATELET VOLUME 8.3 fl (7.4-10.4); PLATELET COUNT 70 10^3/UL (140-440); RED BLOOD COUNT 3.68 10^6/ul (4.70-6.10); RED CELL DISTRIBUTION WIDTH 18.1 % (11.5-14.5)
[2016-09-22 07:17] LABS: CONDITION 1; LH ANALYZER COMMENTS 1; SUSPECT 1
[2016-09-22] MEDS: FOLIC ACID 1 MG TAB PO SCH (08:21)
[2016-09-22] MEDS: SUCRALFATE 1 GM TAB PO SCH ×3 (08:21→18:12)
[2016-09-22 11:25] LABS: ANISOCYTOSIS 1+; SPHEROCYTES 1+
[2016-09-22 11:26] LABS: HYPOCHROMASIA 2+; MICROCYTOSIS 1+
[2016-09-22 13:33] LABS: BASOPHIL # 0.1 10^3/ul (0.0-0.1); EOSINOPHILS # 0.1 10^3/ul (0.0-0.5); MONOCYTE # 0.1 10^3/ul (0.3-0.9); NEUTROPHIL # 0.5 10^3/ul (1.6-7.5)
[2016-09-22] MEDS ORDERED: PANT40TA4 PO (13:52)
[2016-09-22] MEDS ORDERED: SUCR1TAB27 PO (13:52)
--- NOTE | 2016-09-22 14:03 | CONS ---
Date/Time of Note Date/Time of Note DATE: 09/22/16 TIME: 14:02 Assessment/Plan Assessment/Plan Chief Complaint/Hosp Course 40 yo male with alcoholic cirrhosis admitted with alcohol intoxication and loss of consciousness found with pancytopenia. pancytopenia is improving now that patient is not actively drinking. # Pancytopenia -this is likely acute on chronic. The acute component is secondary to bone marrow suppression from alcohol toxicity. The chronic component is secondary to his underlying cirrhosis. Peripheral smear was reviewed and there were no evidence of blasts nor dysplastic cells to suggest an underlying bone marrow hematologic dysfunction or malignancy. -will continue to monitor counts. -if counts continue to drop or there any concern for hematogic malignancy,will perform bone marrow bx at that time. -would only transfuse if platelets are < 10 or there is evidence of bleeding. try to keep Hg> 7.5 # Alcoholism -continue counseling patient on alcoholism Approximately 40 min were spent at patient's bedside and in coordination of his care Problems: Consultation Date/Type/Reason Admit Date/Time Sep 15, 2016 at 04:28 Initial Consult Date 09/18/16 Type of Consultation: Hematology Reason for Consultation pancytopenia Referring Provider: LARISA COHEN MD, [facility] 24 HR Interval Summary Free Text/Dictation no acute overnight events. no bleeding Exam/Review of Systems Vital Signs Vitals Vital Signs Date Time Temp Pulse Resp B/P Pulse Ox O2 Delivery O2 Flow Rate FiO2 09/22/16 12:40 89 09/22/16 11:00 98.1 19 108/62 95 09/22/16 04:00 Room Air Intake and Output 09/21/16 09/21/16 09/22/16 15:00 23:00 07:00 Intake Total 2500 ml 217.5 ml Output Total 4 ml Balance 2496 ml 217.5 ml Exam Constitutional: oriented Head: atraumatic, normocephalic Eyes: nl conjunctiva ENMT: nl external ears & nose, nl lips & teeth Neck: supple Respiratory: clear to auscultation, normal air movement Cardiovascular: regular rate and rhythm Gastrointestinal: soft Musculoskeletal: nl extremities to inspection, nl gait and stance Extremities: normal pulses Results Result Diagram: 09/22/16 0605 09/21/16 0700 Results 24 hrs Laboratory Tests Test 09/22/16 06:05 Anisocytosis 1+ Band Neutrophils % 8.0 H Basophils # 0.1 Basophils % 4.0 H Blood Morphology Comment Eosinophils # 0.1 Eosinophils % 6.0 Hematocrit 29.4 L Hemoglobin 9.8 L Hypochromasia 2+ Lymphocytes # 1.0 Lymphocytes % 48.0 Mean Corpuscular Hemoglobin 26.6 L Mean Corpuscular Hemoglobin Concent 33.2 Mean Corpuscular Volume 80.0 L Mean Platelet Volume 8.3 Microcytosis 1+ Monocytes # 0.1 L Monocytes % 6.0 Myelocytes # 0.0 Myelocytes % 2.0 H Neutrophils # 0.5 L Neutrophils % 24.0 L Nucleated Red Blood Cells # Nucleated Red Blood Cells % Platelet Count 70 L Promyelocytes # 0.0 Promyelocytes % 2.0 H Red Blood Count 3.68 L Red Cell Distribution Width 18.1 H Spherocytes 1+ White Blood Count 2.0 L Medications Medications Current Medications Ondansetron HCl (Zofran Inj) 4 mg Q6H PRN IV NAUSEA AND/OR VOMITING Last administered on 09/15/16 04:41; Admin Dose 4 MG; Start 09/15/16 at 04:30 Nitroglycerin (Nitroglycerin (Sl Tab) 0.4 Mg) 1 tab Q5M PRN SL CHEST PAIN; Start 09/15/16 at 04:30 Ibuprofen (Motrin) 600 mg Q6H PRN PO PAIN LEVEL 1-3 OR FEVER Last administered on 09/17/16 06:13; Admin Dose 600 MG; Start 09/15/16 at 04:30 Morphine Sulfate (morphine) 2 mg Q4H PRN IV PAIN LEVEL 7-10 Last administered on 09/21/16 22:26; Admin Dose 2 MG; Start 09/15/16 at 04:30 Docusate Sodium (Colace) 100 mg Q12H PRN PO CONSTIPATION; Start 09/15/16 at 04: 30 Acetaminophen (Tylenol Tab) 325 mg Q6H PRN PO PAIN AND OR ELEVATED TEMP Last administered on 09/15/16 22:59; Admin Dose 325 MG; Start 09/15/16 at 23:00 Lorazepam (Ativan) 1 mg Q1H PRN IV CONTROL WITHDRAWAL SYMPTOMS Last administered on 09/16/16 20:54; Admin Dose 1 MG; Start 09/16/16 at 12:30 Sucralfate 1 gm 1 gm QID PO Last administered on 09/22/16 12:44; Admin Dose 1 GM; Start 09/16/16 at 13:00 Octreotide Acetate/Sodium Chloride (Sandostatin/NS) 50 ml @ 2.5 mls/hr Q20H IV Last administered on 09/21/16 22:31; Admin Dose 2.5 MLS/HR; Start 09/17/16 at 18:00 Zolpidem Tartrate (Ambien) 5 mg HS PRN PO INSOMNIA Last administered on 02:47; Admin Dose 5 MG; Start 09/18/16 at 00:30 Folic Acid (Folic Acid) 1 mg DAILY PO Last administered on 09/22/16 08:21; Admin Dose 1 MG; Start 09/19/16 at 09:00 Pantoprazole (Protonix Tab) 40 mg BID@06,18 PO Last administered on 09/22/16 05:33; Admin Dose 40 MG; Start 09/19/16 at 18:00 IONA PHILIPPE M.D. Sep 22, 2016 14:03
--- NOTE | 2016-09-22 14:07 | DS ---
Date/Time of Note Date/Time of Note DATE: 09/22/16 TIME: 14:00 Discharge Summary Admission/Discharge Info Admit Date/Time Sep 15, 2016 at 04:28 Discharge Date/Time Final Diagnosis 1. Pancytopenia, due to alcohol and liver cirrhosis, no further work up at this time 2. Stool positive for OB, protonix and carafate, follow up with GI 3. Esophageal varices, n/o TIPS procedure 4. Alcoholic liver disease, Chronic 5. EtOH abuse, encourage abstinence Patient Condition: Stable Hx of Present Illness 40 yo male with a past medical history of ETOH abuse, cirrhosis, vitiligo, s/p TIPS procedure, who presents with acute loss of consciousness. He states that he was drinking last night, passed out and hit his face. He does not recollect what had happened. He was brought in via ambulance to [facility]. Patient states that he had nausea and vomiting x 5 episodes NBNB. Otherwise denies chest pain, shortness of breath, headaches, urinary/bowel irregularities. He does complain of dizziness and weakness. Similar presentation before. He was transferred here to [facility] for insurance purposes. Ct facial: normal CT of the face, no fracture, no hematoma, globes intact. Mild mucoperiosteal thickening maxillary sinuses. CT neck: Mild degenerative changes, without acute fracture Ct brain without contrast: No evidence of acute intracranial pathology. The brain in normal appearance. Labs: WBC 2.5, H/H: 8.3/25.7, Plts: 95, MCV 78.6, K+ 3.3, gluc 118, Mag 1.3, Alb 2.9, Tbili 1.8, Alt 34, AST: 89, Alkphos 175, Amylase 148, Lactic Acid 3.0, Lipase 40, Ethanol 366 Hospital Course H/H 7.2/21.3 on admission with positive stool OB. Patient got two units of PRBC transfusion. H/H improves to 9.8/29.4 on 09/22/2016. Patient has pancytopenia with WBC 2,000, PLT 70,000. It is considered ETOH and chronic liver disease related. GI consultation does not recommend EGD since he has known liver cirrhosis with esophageal varices. H/H has been stable after admission. Patuient will follow up with GI and PCP outpatient. Home Meds Active Scripts Pantoprazole* (Pantoprazole*) 40 Mg Tablet.dr, 40 MG PO BID@ for 30 Days Prov:VIRI MINER MD 09/22/16 Sucralfate (Carafate) 1 Gm Tablet, 1 GM PO QID for 30 Days, TAB Prov:VIRI MINER MD 09/22/16 Follow-up Plan PCP and GI on two weeks Pending Labs Laboratory Tests Test 09/22/16 06:05 Anisocytosis 1+ Band Neutrophils % 8.0% (0.0-5.0) Basophils # 0.110^3/ul (0.0-0.1) Basophils % 4.0% (0.0-2.0) Blood Morphology Comment Eosinophils # 0.110^3/ul (0.0-0.5) Eosinophils % 6.0% (0.0-7.0) Hematocrit 29.4% (42.0-52.0) Hemoglobin 9.8g/dl (14.0-18.0) Hypochromasia 2+ Lymphocytes # 1.010^3/ul (0.8-2.9) Lymphocytes % 48.0% (15.0-51.0) Mean Corpuscular Hemoglobin 26.6pg (29.0-33.0) Mean Corpuscular Hemoglobin Concent 33.2g/dl (32.0-37.0) Mean Corpuscular Volume 80.0fl (82.0-101.0) Mean Platelet Volume 8.3fl (7.4-10.4) Microcytosis 1+ Monocytes # 0.110^3/ul (0.3-0.9) Monocytes % 6.0% (0.0-11.0) Myelocytes # 0.0 Myelocytes % 2.0% (0.0-0.0) Neutrophils # 0.510^3/ul (1.6-7.5) Neutrophils % 24.0% (39.0-77.0) Nucleated Red Blood Cells # 10^3/ul (0.0-0.0) Nucleated Red Blood Cells % /100WBC (0.0-0.0) Platelet Count 7010^3/UL (140-440) Promyelocytes # 0.0 Promyelocytes % 2.0% (0.0-0.0) Red Blood Count 3.6810^6/ul (4.70-6.10) Red Cell Distribution Width 18.1% (11.5-14.5) Spherocytes 1+ White Blood Count 2.010^3/ul (4.8-10.8) VIRI MINER MD Sep 22, 2016 14:07
[2016-09-22] MEDS: OCTREOTIDE 500 MCG in SOD CHLORIDE 0.9% 49 ML IV SCH (18:00)
== END 2016-09-22 20:00 | disposition home or self-care (01) | DRG 897 ==
LOC: E/R 04:00 → PP2 04:28 → TEL 09-17 19:46
PROVIDERS: ADMIT Student in an Organized Health Care Education/Training Program; ATTEND Student in an Organized Health Care Education/Training Program
PROC: 30233R1 Transfusion of Nonautologous Platelets into Peripheral Vein, Percutaneous Approach (ICD-10-PCS; principal; 2016-09-16)
PROC: 30233N1 Transfusion of Nonautologous Red Blood Cells into Peripheral Vein, Percutaneous Approach (ICD-10-PCS; 2016-09-16)
PROC: 30233K1 Transfusion of Nonautologous Frozen Plasma into Peripheral Vein, Percutaneous Approach (ICD-10-PCS; 2016-09-16)
DX: F10.229 Alcohol dependence with intoxication, unspecified (principal); D61.818 Other pancytopenia; K92.0 Hematemesis; I85.10 Secondary esophageal varices without bleeding; K70.30 Alcoholic cirrhosis of liver without ascites; L80 Vitiligo; Y90.3 Blood alcohol level of 60-79 mg/100 ml; D73.89 Other diseases of spleen; Z95.828 Presence of other vascular implants and grafts; K21.9 Gastro-esophageal reflux disease without esophagitis; R19.5 Other fecal abnormalities
CPT/HCPCS: 36430; 71010; 76705; 80048; 80053; 80061; 80306; 81003; 82270; 82550; 82553; 83540; 83735; 84100; 84443; 84484; 85014; 85018; 85025; 85610; 85730; 86480; 86644; 86850; 86900; 86901; 86920; 87040; 87086; 93306; 93880; 96374; 96375; 96376; C9113; J2060; J2270; J2354; J2405; J3411; J3475; J3480; J7030; P9016; P9035; P9059

== ENCOUNTER 2016-10-18 22:08 | Emergency (ER) | payer OTHER ==
[~2016-10-18] VITALS: Ht 175.3 cm; Wt 84.0 kg
[~2016-10-18 22:08] MED LIST: PANT40TA4 PO; SUCR1TAB27 PO
[2016-10-18 22:12] VITALS: Ht 175.3 cm; Wt 84.0 kg
--- NOTE | 2016-10-19 00:26 | ERD ---
ER Documentation Chief Complaint Date/Time DATE: 10/19/16 TIME: 00:21 Chief Complaint r shoulder pain and nosebleed HPI 40-year-old male presents to emergency department for multiple complaints. Patient's complaining of nosebleed episodes for the last one, has been having it on and off. This is from his left naris. Patient denies ecchymosis petechiae , blood in the stool, black stool, vomiting blood, or any other bleeding symptoms. Patient has history of liver cirrhosis. Patient is being treated outpatient. Patient is complaining also of right shoulder pain, throbbing pain, 6/10 scale, is worse upon movement. Patient has been having this pain for the last 4 months, he has had it ever since 4 months ago, he fell from the bed after surgery and landed on the right shoulder. It got worse today. Patient denies any trauma and affected area. Patient denies any other symptoms. Patient did not take any medications for pain. ROS All systems reviewed and are negative except as per history of present illness. Medications Home Meds Active Scripts Pantoprazole* (Pantoprazole*) 40 Mg Tablet.dr, 40 MG PO BID@,18 for 30 Days Prov:VIRI MINER MD 09/22/16 Sucralfate (Carafate) 1 Gm Tablet, 1 GM PO QID for 30 Days, TAB Prov:VIRI MINER MD 09/22/16 Allergies Allergies: Coded Allergies: No Known Allergy (Unverified , 09/15/16) PMhx/Soc Medical and Surgical Hx: pt denies Medical Hx History of Surgery: Yes (liver biopsy and lung surgery ) Anesthesia Reaction: No Hx Neurological Disorder: No Hx Respiratory Disorders: No Hx Cardiac Disorders: No Hx Psychiatric Problems: Yes Hx Miscellaneous Medical Probl: Yes (ESOPHAGEAL VARICES, liver cirrhosis) Hx Alcohol Use: Yes Hx Substance Use: No Hx Tobacco Use: No FmHx Family History: No coronary disease, No diabetes, No other Physical Exam Vitals Vital Signs Date Time Temp Pulse Resp B/P Pulse Ox O2 Delivery O2 Flow Rate FiO2 10/18/16 22:12 98.3 108 18 180/81 100 Physical Exam GENERAL: The patient is well developed and appropriate for usual state of health, in no apparent distress. HEENT: Atraumatic. Ears: Normal tympanic membrane, no erythema or bulging. No ear canal swelling. No ear discharge. Nose: normal nasal turbinates, noted crusts of dried blood in the left naris with no active bleeding at this time. Right naris is normal.. Throat: oropharynx clear. No tonsillar swelling or tonsillar exudates. No lymphadenopathy. CHEST: Clear to auscultation bilaterally. There are no rales, wheezes or rhonchi. HEART: Regular rate and rhythm. No murmurs, clicks, rubs or gallops. No S3 or S4. ABDOMEN: Soft, nontender and nondistended. Good bowel sounds. No rebound or guarding. No gross peritonitis. No gross organomegaly or masses. No Claire sign or McBurney point tenderness. BACK: No midline or flank tenderness. EXTREMITIES: Tenderness on palpation in anterior and posterior shoulder area with no swelling noted, no crepitus noted, unable to do full range of motion because of the pain. Equal pulses bilaterally. There is no peripheral clubbing, cyanosis or edema. No focal swelling or erythema. Full range of motion about the joints of the body. Grossly neurovascularly intact. NEURO: Alert and oriented. Cranial nerves 2-12 intact. Motor strength in all 4 extremities with 5/5 strength. Sensation grossly intact. Normal speech and gait. SKIN: There is no apparent rash or petechia. The skin is warm and dry. HEMATOLOGIC AND LYMPHATIC: There is no evidence of excessive bruising or lymphedema. No gross cervical, axillary, or inguinal lymphadenopathy. Result Diagram: 10/19/16 0045 Results 24 hrs Laboratory Tests Test 10/19/16 00:45 Basophils # 0.010^3/ul Basophils % 0.8% Blood Morphology Comment Eosinophils # 0.210^3/ul Eosinophils % 5.0% Hematocrit 25.7% Hemoglobin 8.7g/dl Lymphocytes # 0.910^3/ul Lymphocytes % 29.6% Mean Corpuscular Hemoglobin 26.9pg Mean Corpuscular Hemoglobin Concent 33.9g/dl Mean Corpuscular Volume 79.5fl Mean Platelet Volume 8.3fl Monocytes # 0.310^3/ul Monocytes % 11.1% Neutrophils # 1.610^3/ul Neutrophils % 53.5% Nucleated Red Blood Cells # 0.010^3/ul Nucleated Red Blood Cells % 0.0/100WBC Platelet Count 9610^3/UL Red Blood Count 3.2310^6/ul Red Cell Distribution Width 23.2% White Blood Count 3.110^3/ul Current Medications Medications (Trade) Dose Ordered Sig/Debora Route PRN Reason Start Time Stop Time Status Last Admin Dose Admin Morphine Sulfate (morphine) 6 mg ONCE ONCE IM 10/19/16 00:30 10/19/16 00:31 DC 10/19/16 00:52 Patient was given medication for pain here in emergency department, after treatment, patient verbalized feeling much better. Patient's pain is improved. PROCEDURE: RIGHT SHOULDER CLINICAL INDICATION: 40-year-old male with right shoulder pain. TECHNIQUE: Three views of the right shoulder were obtained. The images reviewed on a PACS workstation. COMPARISON: Chest x-ray September 16, 2016. FINDINGS: No evidence of fracture or dislocation is seen. The glenohumeral and acromioclavicular joint spaces appear preserved. Limited views of the clavicle and thorax are within normal limits. IMPRESSION: Unremarkable right shoulder radiographs. .Rashawn Morejon MD, MD Date Time Electronically viewed and signed by .Rashawn Morejon MD, MD on 10/19/2016 01:36 After receiving patients xray report, a sling was applied on the patients right arm. After application of the splint, patient has intact sensation and circulation on distal area of the affected joint. Patient does not complain of numbness or tingling after application of the splint. Patient tolerated procedure well. Procedures/MDM Medical Decision Making: Patient's right shoulder pain is most likely consistent with a contusion or a sprain, possible ligament injury. There is no suspicion for neurovascular compromise. Patient has intact sensation and circulation of the affected extremity. There is low suspicion for septic arthritis. Patient does not have any fever. Radiology exams of the affected area does not show any fracture or dislocation. MRI of affected area is recommended. Patient nosebleed nonspecific at this time, no trauma related, likely from dryness of the nasal turbinates, also patient has history of liver cirrhosis, has low platelets, at this time, hemoglobin and hematocrit is stable. Disposition: Home. Patient is given prescription for ibuprofen for pain, tramadol for severe pain. Advised to apply Vaseline and bilateral naris. Patient was advised to elevate the affected area and apply ice on affected area. Patient was advised that if symptoms are worse, numbness, tingling, high fever, unable to move joint, worsening symptoms, to return to emergency department immediately. Otherwise, patient is advised to follow up with the primary care doctor in 5-7 days for reevaluation of symptoms. Departure Diagnosis: Primary Impression: Epistaxis Additional Impression: Shoulder pain Laterality: right Chronicity: chronic Qualified Code: M25.511 - Chronic right shoulder pain Condition: Stable Patient Instructions: Epistaxis (Adult), Shoulder Pain (Uncertain Cause) Additional Instructions: Patient is given prescription for ibuprofen for pain, tramadol for severe pain. Advised to apply Vaseline and bilateral naris. Patient was advised to elevate the affected area and apply ice on affected area. Patient was advised that if symptoms are worse, numbness, tingling, high fever, unable to move joint, worsening symptoms, to return to emergency department immediately. Otherwise, patient is advised to follow up with the primary care doctor in 5-7 days for reevaluation of symptoms. RUBEN WETZEL NP Oct 19, 2016 00:26
[2016-10-19] MEDS ORDERED: morphine 10 MG INJ IM ONE (00:30)
[2016-10-19 00:57] LABS: BASOPHILS % 0.8 % (0.0-2.0); EOSINOPHILS # 0.2 10^3/ul (0.0-0.5); HEMATOCRIT 25.7 % (42.0-52.0); HEMOGLOBIN 8.7 g/dl (14.0-18.0); LYMPHOCYTES # 0.9 10^3/ul (0.8-2.9); LYMPHOCYTES % 29.6 % (15.0-51.0); MEAN CORPUSCULAR HEMOGLOBIN 26.9 pg (29.0-33.0); MEAN CORPUSCULAR HGB CONC 33.9 g/dl (32.0-37.0); MEAN CORPUSCULAR VOLUME 79.5 fl (82.0-101.0); MEAN PLATELET VOLUME 8.3 fl (7.4-10.4); MONOCYTE # 0.3 10^3/ul (0.3-0.9); MONOCYTES % 11.1 % (0.0-11.0); NEUTROPHIL # 1.6 10^3/ul (1.6-7.5); NEUTROPHILS % 53.5 % (39.0-77.0); PLATELET COUNT 96 10^3/UL (140-440); RED BLOOD COUNT 3.23 10^6/ul (4.70-6.10); RED CELL DISTRIBUTION WIDTH 23.2 % (11.5-14.5); UNCORRECTED WBC 3.1 10^3/ul (4.8-10.8); WHITE BLOOD COUNT 3.1 10^3/ul (4.8-10.8)
[2016-10-19 00:58] LABS: CONDITION 1; LH ANALYZER COMMENTS 1
--- NOTE | 2016-10-19 01:36 | RADRPT ---
PROCEDURE: RIGHT SHOULDER CLINICAL INDICATION: 40-year-old male with right shoulder pain. TECHNIQUE: Three views of the right shoulder were obtained. The images reviewed on a PACS workstat ion. COMPARISON: Chest x-ray September 16, 2016. FINDINGS: No evidence of fracture or dislocation is seen. The glenohumeral and acromioclavicular joint spaces appear preserved. Limited views of the clavicle and thorax are within normal limits. IMPRESSION: Unremarkable right shoulder radiographs. .Rashawn Morejon MD, MD Date Time Electronically viewed and signed by .Rashawn Morejon MD, on 10/19/2016 01:36 .M/
[2016-10-19] MEDS ORDERED: IBUP-1542 PO (01:58)
[2016-10-19] MEDS ORDERED: TRAM50TA2 PO (01:58)
[2016-10-19] MEDS ORDERED: traMADol 50 MG TAB PO ONE (02:30)
[2016-10-19 02:36] VITALS: BP 138/75; PULSE 94; RESP 16; TEMP 98.3
== END 2016-10-19 02:37 | disposition home or self-care (01) ==
LOC: FTE 22:08
DX: R04.0 Epistaxis (principal); M25.511 Pain in right shoulder
CPT/HCPCS: 73030; 85025; 96372; J2270; Z7502; Z7610